=== PATIENT | male | born 1935 | race Caucasian/White ===

== ENCOUNTER 2017-10-08 08:44 | Inpatient (IN) | payer MEDICARE ==
[2017-10-08] VITALS (24 sets, daily range): BP systolic 64–101; BP diastolic 24–70
[~2017-10-08] VITALS: Ht 175.3 cm; Wt 68.6 kg
[~2017-10-08 08:44] MED LIST: AMIODARONE HCL200 MG PO; AMLODIPINE BESYL5 MG PO; CEFDINIR300 MG; CEFDINIR300 MG PO; COLESTIPOL HCL1 GM PO; COMBIVENT RESPIM4 GM IH; COUMADIN PO; COUMADIN2.5 MG PO; COUMADIN3 MG PO; COUMADIN5 MG PO; GABAPENTIN100 MG PO; LIALDA1.2 GM PO; LOVENOX100 MG/ML SC; MAGNESIUM OXID400 MG PO; METOPROLOL SUCC25 MG PO; METOPROLOL SUCC50 MG PO; NASONEX17 GM INH; PANTOPRAZOLE SO40 MG PO; PEPCID20 MG PO; PROAIR HFA INH8.5 GM INH; QUESTRAN PACKET4 GM PO; SODIUM BICARBO650 MG PO; SULFASALAZINE500 MG PO; ULTRAM50 MG PO; WARFARIN SODIU2.5 MG PO; WARFARIN SODIUM3 MG PO; WARFARIN SODIUM5 MG PO; ZOFRAN ODT4 MG PO
--- OUTSIDE RECORDS SUMMARY | 2017-10-08 08:47 | XMS REPORT ---
Author Author [facility] Address Unknown Phone Unavailable Care Team Providers Care Used Car [employer] Name Role Phone DARIN GONZALEZ Unavailable Unavailable [facility] Unavailable Unavailable Problems This patient has no known problems. Allergies, Adverse Reactions, Alerts This patient has no known allergies or adverse reactions. Medications This patient has no known medications. Results Test Description Test Time Test Comments Text Results Atomic Results Result Comments CT CERVICAL SPINE WO [place] [id number] Patient Name: CHAPIN TALBERT II MR #: [id number] : 1935 Age/Sex: 81/M Req #: [id number] Adm Physician: Ordered by: DARIN GONZALEZ MD Report #: [id number] Location: ER Room/Bed: Procedure: [id number] 0031 CT/CT CERVICAL SPINE WO Exam Date: 07/02/17 Exam Time: 2350 REPORT STATUS: Signed Exams: Head and cervical spine CTs without IV contrast History: Trauma, fall Comparison studies: None Technique: Axial images were obtained from the brain and cervical spine. Coronal and sagittal images reconstructed from the axial data. Intravenous contrast: None Findings: Head CT: Soft tissues: Right supraorbital laceration. No retained hyperdense foreign body. Bones: No fractures, blastic or lytic lesions. Extra-axial spaces: No masses. No fluid collections. Brain sulci: Prominent. Ventricles: Mild compensatory dilatation.. No hydrocephalus. Parenchyma: No mass, acute hemorrhage or acute cortical vascular insults. A few scattered hypodensities in the supratentorial white matter are nonspecific but most compatible with chronic small vessel ischemic changes. Sellar/suprasellar region: No abnormalities. Craniocervical junction: The foramen magnum is patent. No Chiari one malformation. Cervical spine CT: Fractures: None. Soft tissues: No gross abnormalities. Atlantoaxial articulation: Intact. Alignment: Mild cervical kyphosis. 4 mm anterolisthesis of C2 on C3 and minimal anterolisthesis of C3 on C4, retrolisthesis of C5 on C6 and anterolisthesis of C7 on T1 are most likely degenerative in etiology. Cervicomedullary junction: No abnormalities. The foramen magnum is patent. Vertebrae: No infection or neoplasm. Degenerative changes: Moderately degenerated C2- C3 disc. Severely degenerated disks from C3 to C7. Mildly degenerated C7-T1 disc. No significant canal stenosis. Multilevel facet arthrosis, moderate bilaterally at C2-C3 on the left at C3-C4. Lytic changes at the right C2-C3 facet are likely sequela of synovitis. Multilevel foraminal stenosis due to uncovertebral facet arthrosis (mild right at C2-C3, moderate bilaterally at C3 -C4, moderate right and mild left at C4-C5, moderate left and mild right at C5 -C6, mild right greater than left at C6-C7). Incidental findings: Atherosclerotic calcifications in the carotid siphons an bilateral cervical carotid bifurcation/carotid bulbs. Left lens replacement related to previous cataract surgery. Nonspecific subpleural nodularity at the right lung apex, possibly scarring. IMPRESSION: Head CT: 1. Right supraorbital soft tissue laceration without retained hyperdense foreign body or underlying fracture. 2. No acute intracranial abnormalities. 3. Mild generalized volume loss. 4. Mild chronic microvascular ischemic changes. Cervical spine CT: 1. No cervical spine fracture or acute subluxations. 2. Advanced multilevel degenerative changes with multilevel listhesis as described. 3. Cannot adequately ligament, spinal cord and or vascular abnormalities on the basis of this examination. Signed by: Dr. John Baker M.D. on 07/03/2017 12:53 AM Dictated By: JOHN BAKER MD Transcribed By: NINA on 07/03/1752 COPY TO: DARIN GONZALEZ MD CT BRAIN WO [place] [id number] [place] [address] Patient Name: CHAPIN TALBERT II MR #: [id number] : 1935 Age/Sex: 81/M Req #: [id number] Adm Physician: Ordered by: DARIN GONZALEZ MD Report #: [id number] Location: ER Room/Bed: Procedure: [id number] 0030 CT/CT BRAIN WO Exam Date: 07/02/17 Exam Time: 2350 REPORT STATUS: Signed Exams: Head and cervical spine CTs without IV contrast History: Trauma, fall Comparison studies: None Technique: Axial images were obtained from the brain and cervical spine. Coronal and sagittal images reconstructed from the axial data. Intravenous contrast: None Findings: Head CT: Soft tissues: Right supraorbital laceration. No retained hyperdense foreign body. Bones: No fractures, blastic or lytic lesions. Extra-axial spaces: No masses. No fluid collections. Brain sulci: Prominent. Ventricles: Mild compensatory dilatation.. No hydrocephalus. Parenchyma: No mass, acute hemorrhage or acute cortical vascular insults. A few scattered hypodensities in the supratentorial white matter are nonspecific but most compatible with chronic small vessel ischemic changes. Sellar/suprasellar region: No abnormalities. Craniocervical junction: The foramen magnum is patent. No Chiari one malformation. Cervical spine CT: Fractures: None. Soft tissues: No gross abnormalities. Atlantoaxial articulation: Intact. Alignment: Mild cervical kyphosis. 4 mm anterolisthesis of C2 on C3 and minimal anterolisthesis of C3 on C4, retrolisthesis of C5 on C6 and anterolisthesis of C7 on T1 are most likely degenerative in etiology. Cervicomedullary junction: No abnormalities. The foramen magnum is patent. Vertebrae: No infection or neoplasm. Degenerative changes: Moderately degenerated C2- C3 disc. Severely degenerated disks from C3 to C7. Mildly degenerated C7-T1 disc. No significant canal stenosis. Multilevel facet arthrosis, moderate bilaterally at C2-C3 on the left at C3-C4. Lytic changes at the right C2-C3 facet are likely sequela of synovitis. Multilevel foraminal stenosis due to uncovertebral facet arthrosis (mild right at C2-C3, moderate bilaterally at C3 -C4, moderate right and mild left at C4-C5, moderate left and mild right at C5 -C6, mild right greater than left at C6-C7). Incidental findings: Atherosclerotic calcifications in the carotid siphons an bilateral cervical carotid bifurcation/carotid bulbs. Left lens replacement related to previous cataract surgery. Nonspecific subpleural nodularity at the right lung apex, possibly scarring. IMPRESSION: Head CT: 1. Right supraorbital soft tissue laceration without retained hyperdense foreign body or underlying fracture. 2. No acute intracranial abnormalities. 3. Mild generalized volume loss. 4. Mild chronic microvascular ischemic changes. Cervical spine CT: 1. No cervical spine fracture or acute subluxations. 2. Advanced multilevel degenerative changes with multilevel listhesis as described. 3. Cannot adequately ligament, spinal cord and or vascular abnormalities on the basis of this examination. Signed by: Dr. John Baker M.D. on 07/03/2017 12:53 AM Dictated By: JOHN BAKER MD Transcribed By: NINA on 07/03/1752 COPY TO: DARIN GONZALEZ MD [facility] [place] [address] Patient Name: CHAPIN TALBERT II MR #: [id number] : 1935 Age/Sex: 81/M Req #: [id number] Adm Physician: Ordered by: DARIN GONZALEZ MD Report #: [id number] Location: ER Room/Bed: Procedure: [id number] DX/CHEST SINGLE (PORTABLE) Exam Date: 07/02/17 Exam Time: 2350 REPORT STATUS: Signed EXAM: CHEST SINGLE (PORTABLE), AP 1 view DATE: 07/02/2017 11:18 PM Time stamp on exam: 2342 hours INDICATION: Post fall, shortness of breath COMPARISON: PA and lateral view of the chest June 28, 2017 FINDINGS: LINES/TUBES: Interval removal of right subclavian line. LUNGS: Stable emphysematous changes with interstitial thickening in the right greater than left lung base. PLEURA: No effusions or pneumothorax. HEART AND MEDIASTINUM: Stable appearance. BONES AND SOFT TISSUES: No acute findings. IMPRESSION: No acute thoracic abnormality. Signed by: Dr. Leesa Grant M.D. on 07/03/2017 1:17 AM Dictated By: LEESA GRANT MD 6 Transcribed By: NINA on 07/03/17116 COPY TO: DARIN GONZALEZ MD PELVIS AP 1-2 VIEWS [place] [address] Patient Name: CHAPIN TALBERT II MR #: [id number] : 1935 Age/Sex: 81/M Req #: [id number] Adm Physician: Ordered by: DARIN GONZALEZ MD Report #: [id number] Location: ER Room/Bed: Procedure: 1204- 0100 DX/PELVIS AP 1-2 VIEWS Exam Date: 07/02/17 Exam Time: 2350 REPORT STATUS: Signed EXAM: PELVIS AP 1-2 VIEWS DATE : 07/02/2017 11:18 PM Time stamp on exam: 2348 hours INDICATION: Fall COMPARISON: None FINDINGS: Femoral necks are not seen in profile. No evidence of an acute pelvic fracture. Chronic deformity of the right iliac wing. IMPRESSION: No evidence of acute pelvic fracture. The femoral necks are incompletely evaluated. Signed by: Dr. Leesa Grant M.D. on 07/03/2017 1:19 AM Dictated By: LEESA GRANT MD 8 Transcribed By: NINA on 118 COPY TO: DARIN GONZALEZ MD CHEST 2 VIEWS [place] [address] Patient Name: CHAPIN TALBERT II MR #: [id number] : 1935 Age/Sex: 81/M Req #: [id number] Adm Physician: [facility] G[facility] MD Ordered by: MERCY GARDNER MD Report #: [id number] Location: MED/SURG3 [facility] Procedure: [id number] DX/CHEST 2 VIEWS Exam Date: 06/28/17 Exam Time: 1019 REPORT STATUS: Signed PROCEDURE: Frontal and lateral views of the chest. COMPARISON: Portable chest 08/14/2016. Portable chest 06/26/2017 INDICATIONS: PNEUMONIA FINDINGS: Lines/tubes: Right subclavian central venous catheter with the midportion of the catheter coiled within the expected region of the right brachiocephalic vein and the tip projecting over the expected region of the superior vena cava. Lungs: Bibasilar airspace opacities, stable since previous examination. No parenchymal mass. Pleura: There is no pleural effusion or pneumothorax. Heart and mediastinum: The heart and the mediastinum are normal. Bones: No acute bony abnormality. Degenerative changes of the thoracic spine. IMPRESSION: Stable bilateral airspace opacities, consistent with history of pneumonia. Dictated by: Tonia Cartagena M.D. on 06/28/2017 at 10:51 Electronically approved by: Tonia Cartagena M.D. on 06/28/2017 at 10:51 Dictated By: TONIA CARTAGENA MD 1051 COPY TO: [facility] G[facility] MD CHEST SINGLE (PORTABLE) [place] [address] Patient Name: CHAPIN TALBERT II MR #: [id number] : 1935 Age/Sex: 81/M Req #: [id number] Adm Physician: [facility] GARDNER MD Ordered by: MERCY GARDNER MD Report #: [id number] Location: ICU Room/Bed: ICU [facility] Procedure: [id number] DX/CHEST SINGLE (PORTABLE) Exam Date: 06/26/17 Exam Time: 1015 REPORT STATUS: Signed PROCEDURE: CHEST SINGLE (PORTABLE) COMPARISON: 06/21/2017. INDICATIONS: PNEUMONIA, COUGH WITH INSPIRATION FINDINGS: Unchanged position of right subclavian central venous catheter, which loops over the clavicular head. The tip projects in the expected region of the right brachiocephalic vein. Lungs remain well-inflated. Image quality is slightly degraded by motion artifact. Grossly stable bibasilar airspace disease, right greater than left. Emphysematous changes are again noted. No new consolidation. Stable cardiomediastinal contour. Nasogastric tube has been removed. No acute osseous abnormality.. CONCLUSION: Stable emphysematous changes with bilateral lower lobe pneumonia, right worse than left. Dictated by: John Chase M.D. on 06/26/2017 at 10:54 Electronically approved by: John Chase M.D. on 06/26/2017 at 10:54 Dictated By: JOHN CHASE MD 1054 Transcribed By: ANETA on 06/26/17 1054 COPY TO: MERCY GARDNER MD ABDOMEN-1VIEW (KUB) [place] [address] Patient Name: CHAPIN TALBERT II MR #: [id number] : 1935 Age/Sex: 81/M Req #: [id number] Adm Physician: MER[facility] GARDNER MD Ordered by: JOHN BEVERLY MD Report #: [id number] Location: ICU Room/Bed: ICU [facility] ___ Procedure: [id number] DX/ABDOMEN-1VIEW (KUB) Exam Date: 06/23/17 Exam Time: 1100 REPORT STATUS: Signed Exam: Abdominal film Clinical History: Aspiration, bowel obstruction Comparison: June 22, 2017 DISCUSSION: Enteric tube unchanged. Multiple dilated loops of small bowel and colon. Overall the distention appears unchanged with different loops of air-filled bowel. IMPRESSION: Stable dilated loops of small bowel. Signed by: Dr. Payam Barrios M.D. on 06/23/2017 11:43 AM Dictated By: PAYAM BARRIOS MD 42 Transcribed By: NINA on 06/23/171142 COPY TO: JOHN BEVERLY MD ABDOMEN-1VIEW (KUB) [place] [address] Patient Name: CHAPIN TALBERT II MR #: [id number] : 1935 Age/Sex: 81/M Req #: [id number] Adm Physician: MERCY GARDNER MD Ordered by: MERCY GARDNER MD Report #: [id number] Location: ICU Room/Bed: ICU [facility] Procedure: [id number] DX/ABDOMEN-1VIEW (KUB) Exam Date: Exam Time: REPORT STATUS: Signed EXAM: ABDOMEN- 1VIEW (KUB), supine DATE: 06/22/2017 5:00 AM Time stamp on exam: 0406 hours INDICATION: Ileus versus intestinal obstruction COMPARISON: KUB May FINDINGS: LINES/TUBES: Nasal/orogastric tube terminates in expected location of the body of the stomach BOWEL PATTERN: Dilated loops of small bowel, decreased from prior exam. Air is seen throughout the colon to the rectum. SOFT TISSUES: Surgical clips project over the bilateral pelvis. LUNG BASES: Not included BONES: No acute findings. IMPRESSION: Dilated loops of small bowel, decreased decreased from prior exam. Appearance of bowel suggests partial small bowel obstruction or ileus. Signed by: Dr. Leesa Grant M.D. on 06/22/2017 4:30 AM Dictated By: LEESA GRANT MD 9 Transcribed By: NINA on 06/22/17429 COPY TO: MERCY GARDNER MD CHEST SINGLE (PORTABLE) [facility] [address] [place] [address] Patient Name: CHAPIN TALBERT II MR #: [id number] : 1935 Age/Sex: 81/M Req #: [id number] Adm Physician: MERCY GARDNER MD Ordered by: JOHN ERIC MD Report #: [id number] Location: ICU Room/Bed: ICU [facility] ___ Procedure: [id number] DX/CHEST SINGLE (PORTABLE) Exam Date: 06/21/17 Exam Time: 526 REPORT STATUS: Signed EXAM: CHEST SINGLE (PORTABLE), AP 1 view DATE: 06/21/2017 8:05 AM Time stamp on exam: 0527 hours INDICATION: Pneumonia COMPARISON: AP view of the chest of the 2016 FINDINGS: LINES/TUBES: Stable appearance of coiled right subclavian central line. Nasal/orogastric tube courses below the diaphragm out of field of view. LUNGS: Stable emphysematous changes with bibasilar opacities suggesting superimposed infection. PLEURA: No effusions or pneumothorax. HEART AND MEDIASTINUM: Stable appearance. BONES AND SOFT TISSUES: No acute findings. IMPRESSION: No interval change. Signed by: Dr. Leesa Grant M.D. on 06/21/2017 6:28 AM Dictated By: LEESA GRANT MD 7 Transcribed By: NINA on 06/21/17627 COPY TO: JOHN ERIC MD ABDOMEN-1VIEW (KUB) [place] [address] Patient Name: CHAPIN TALBERT II MR #: [id number] : 1935 Age/Sex: 81/M Req #: [id number] Adm Physician: MERCY GARDNER MD Ordered by: MERCY GARDNER MD Report #: [id number] Location: ICU Room/Bed: ICU [facility] Procedure: [id number] DX/ABDOMEN-1VIEW (KUB) Exam Date: Exam Time: REPORT STATUS: Signed EXAM: ABDOMEN- 1VIEW (KUB), supine DATE: 06/21/2017 5:00 AM Time stamp on exam: 0528 hours INDICATION: Sepsis COMPARISON: KUB June 20, 2017 FINDINGS: LINES/ TUBES: Inferior vena cava filter. Nasal/orogastric tube projects over the expected location of the proximal stomach. BOWEL PATTERN: Dilated loops of air-filled small bowel in the middle of the abdomen up to 5 to 7 cm. SOFT TISSUES: Surgical clips project over the pelvis. LUNG BASES: Partially visualized, bibasilar atelectasis BONES: No acute findings. IMPRESSION: Findings suggest high-grade small bowel obstruction. Signed by: Dr. Leesa Grant M.D. on 06/21/2017 6:31 AM Dictated By: LEESA GRANT MD 0 COPY TO: MERCY GARDNER MD ABDOMEN-1VIEW (KUB) [place] [address] Patient Name: CHAPIN TALBERT II MR #: [id number] : 1935 Age/Sex: 81/M Req #: [id number] Adm Physician: MERCY GARDNER MD Ordered by: MERCY GARDNER MD Report #: [id number] Location: ICU Room/Bed: ICU 196 Procedure: [id number] DX/ABDOMEN-1VIEW (KUB) Exam Date: Exam Time: REPORT STATUS: Signed EXAM: ABDOMEN- 1VIEW (KUB), supine DATE: 06/20/2017 5:00 AM Time stamp on exam: 0531 hours INDICATION: Ileus versus intestinal obstruction COMPARISON: KUB May FINDINGS: LINES/TUBES: Inferior vena cava filter. BOWEL PATTERN: Nonspecific bowel gas pattern. General paucity of bowel gas. SOFT TISSUES: No abnormal calcifications. No mass effect. LUNG BASES: Not included BONES: No acute findings. IMPRESSION: Nonspecific bowel gas pattern. General paucity of bowel gas. Signed by: Dr. Leesa Grant M.D. on 06/20/2017 6:27 AM Dictated By: LEESA GRANT MD 6 Transcribed By: NINA on 06/20/17626 COPY TO: MERCY GARDNER MD CHEST SINGLE (PORTABLE) [place] [address] Patient Name: CHAPIN TABLERT II MR #: [id number] : 1935 Age/Sex: 81/M Req #: [id number] Adm Physician: MERCY GARDNER MD Ordered by: JOHN ERIC MD Report #: [id number] Location: ICU Room/Bed: ICU 196 ___ Procedure: DX/CHEST SINGLE (PORTABLE) Exam Date: Exam Time: REPORT STATUS: Signed EXAM: CHEST SINGLE (PORTABLE), AP 1 view DATE: 06/19/2017 9:00 AM Time stamp on exam: 0532 hours INDICATION: Shortness of breath, pneumonia COMPARISON: AP view of the chest June 18, 2017 FINDINGS: LINES/TUBES: Stable appearance of coiled right subclavian central line. Nasal/orogastric tube courses below the diaphragm and out of field of view. LUNGS: Stable emphysematous changes with bibasilar opacities suggesting superimposed infection. PLEURA: No effusions or pneumothorax. HEART AND MEDIASTINUM: Normal size and contour. BONES AND SOFT TISSUES: No acute findings. IMPRESSION: No interval change. Signed by: Dr. Leesa Grant M.D. on 06/19/2017 6:50 AM Dictated By: LEESA GRANT MD Transcribed By: NINA on 06/19/1750 COPY TO: JOHN ERIC MD ABDOMEN-1VIEW ([place] [address] Patient Name: CHAPIN TALBERT II MR #: [id number] : 1935 Age/Sex: 81/M Req #: [id number] Adm Physician: MERCY GARDNER MD Ordered by: MERCY GARDNER MD Report #: [id number] Location: ICU Room/Bed: ICU 196 Procedure: DX/ABDOMEN-1VIEW (KUB) Exam Date: Exam Time: REPORT STATUS: Signed EXAM: ABDOMEN- 1VIEW (KUB), supine DATE: 06/19/2017 5:00 AM Time stamp on exam: 0531 hours INDICATION: Abdominal pain, distention COMPARISON: KUB August 18, 2016 FINDINGS: LINES/TUBES: Inferior vena cava filter stable position BOWEL PATTERN: Nonspecific bowel gas pattern with a general paucity of bowel gas. SOFT TISSUES: No abnormal calcifications. No mass effect. LUNG BASES: Bibasilar opacities BONES: No acute findings. IMPRESSION: Nonspecific bowel gas pattern with a general paucity of bowel gas. Signed by: Dr. Leesa Grant M.D. on 06/19/2017 6:51 AM Dictated By: LEESA GRANT MD 0 COPY TO: MERCY GARDNER MD CHEST SINGLE (PORTABLE) [place] [address] Patient Name: CHAPIN TALBERT II MR #: [id number] : 1935 Age/Sex: 81/M Req #: [id number] Adm Physician: MERCY GARDNER MD Ordered by: BEAU AQUINO MD Report #: [id number] Location: ICU Room/Bed: [place] [address] Procedure: [id number] DX/CHEST SINGLE (PORTABLE) Exam Date: 06/18/17 Exam Time: 0500 REPORT STATUS: Signed CHEST SINGLE (PORTABLE), 06/18/2017 5:00 AM Technique: CHEST SINGLE (PORTABLE) Comparison: 06/17/2017 Clinical history: Pneumonia Findings: See Impression Impression: 1. Lines/Tubes: Right central venous catheter remains coiled over the expected right brachiocephalic vein. Enteric feeding tube tip overlies the lower midline hemithorax, possibly within a hiatal hernia. 2. Persistent right greater than left lower lung opacity compatible with infection in the setting of emphysema. Signed by : Dr James Sal MD on 06/18/2017 6:33 AM Dictated By: JAMES SAL MD 2 Transcribed By: NINA on 06/18/17632 COPY TO: BEAU AQUINO MD CHEST SINGLE (PORTABLE) [place] [address] Patient Name: CHAPIN TALBERT II MR #: [id number] : 1935 Age/Sex: 81/M Req #: [id number] Adm Physician: Ordered by: BEAU AQUINO MD Report #: [id number] Location: ER Room/Bed: Procedure: [id number] DX/CHEST SINGLE (PORTABLE) Exam Date: 06/17/17 Exam Time: 1435 REPORT STATUS: Signed EXAMINATION: Chest, CHEST SINGLE (PORTABLE) INDICATION: Shortness of breath. COMPARISON: Portable chest 08/14/2016. Portable chest 06/17/2017. FINDINGS: LINES: Enteric feeding catheter is present with the tip extending below the inferior margin of the examination, likely within the gastric body. Right subclavian central venous catheter is present with the tip coiled within the right brachiocephalic vein. Heart: Normal cardiac silhouette. Vascular: The pulmonary vasculature is within normal limits. Atherosclerotic calcifications of the aortic arch. Mediastinum: No mediastinal, hilar, or axillary mass or lymphadenopathy. Lungs: No parenchymal mass. Large opacity in the right lung base. Small airspace opacity in the left lung base. Pleura: No pleural effusion. No pneumothorax. Bones: No acute osseous abnormality. Degenerative changes of the thoracic spine. Soft tissues: Normal. Impression: Bibasilar airspace opacities likely represent pneumonia. Right subclavian central venous catheter positioned as above. Signed by: Dr. Tonia Cartagena M.D. on 06/17/2017 2:54 PM Dictated By: TONIA CARTAGENA MD 53 Transcribed By: NINA on 06/17/171453 COPY TO: BEAU AQUINO MD CHEST SINGLE (PORTABLE) [place] [address] Patient Name: CHAPIN TALBERT II MR #: [id number] : 1935 Age/Sex: 81/M Req #: [id number] Adm Physician: Ordered by: BEAU AQUINO MD Report #: [id number] Location: ER Room/Bed: Procedure: [id number] DX/CHEST SINGLE (PORTABLE) Exam Date: 06/17/17 Exam Time: 1220 REPORT STATUS: Signed EXAMINATION: Chest, CHEST SINGLE (PORTABLE) INDICATION: Shortness of breath. COMPARISON: Portable chest 08/14/2016 FINDINGS: LINES: None. Heart: Normal cardiac silhouette. Vascular: The pulmonary vasculature is within normal limits. Atherosclerotic calcifications of the aortic arch. Mediastinum: No mediastinal, hilar, or axillary mass or lymphadenopathy. Lungs: No parenchymal mass. Large opacity in the right lung base. Small airspace opacity in the left lung base. Pleura: No pleural effusion. No pneumothorax. Bones: No acute osseous abnormality. Degenerative changes of the thoracic spine. Soft tissues: Normal. Impression: Bibasilar airspace opacities likely represent pneumonia. Signed by: Dr. Tonia Cartagena M.D. on 06/17/2017 12:36 PM Dictated By: TONIA CARTAGENA MD 1236 Transcribed By: NINA on 06/17/17 1236 COPY TO: BEAU AQUINO MD CT ABDOMEN/PELVIS WO [place] [address] Patient Name: CHAPIN TALBERT II MR #: [id number] : 1935 Age/Sex: 81/M Req #: [id number] Adm Physician: Ordered by: BEAU AQUINO MD Report # : [id number] Location: ER Room/Bed: Procedure: [id number] CT/CT ABDOMEN/PELVIS WO Exam Date: 06/17/17 Exam Time: 1229 REPORT STATUS: Signed EXAM: CT Abdomen and Pelvis WITHOUT contrast INDICATION: Abdominal pain COMPARISON: None. TECHNIQUE: Abdomen and pelvis were scanned utilizing a multidetector helical scanner from the lung base to the pubic symphysis. Coronal and sagittal reformations were obtained. The lack of intravenous contrast limits the evaluation of the solid organs, vasculature, and possible lymphadenopathy. Protocol: General survey without contrast IV CONTRAST: No intravenous contrast was administered as per physician request. ORAL CONTRAST: None. COMPLICATIONS: None. RADIATION DOSE: Total Exam DLP: 421.1 mGy*cm. CTDIvol has been reviewed. It is below the limits set by the Radiation Protocol Committee (RPC). FINDINGS: LINES: None. Lower thorax: Bilateral lung base airspace opacities. No pneumothorax. No pleural effusion. Liver: No focal mass. No hepatomegaly. Normal parenchyma. Stable simple cysts. Gallbladder: No gallstones. No gallbladder distention. Biliary tree: No intrahepatic duct dilation. No extrahepatic duct dilation. Spleen: No splenomegaly. No focal mass. Pancreas: No focal mass. Normal pancreatic duct. No peripancreatic inflammatory changes. Kidneys: No obstructing calculi. No hydronephrosis. No cysts. No perinephric soft tissue inflammatory changes. Adrenal glands: No adrenal nodules.. Bladder: Cystectomy. Pelvic organs: Limited evaluation. GI: Mucosal irregularity is noted in the region of the gastroesophageal junction, series 401 image 49. Moderate amount of fluid is present in the distal esophagus. Multiple fluid-filled distended loops of small bowel with the transition zone in the left mid abdomen, series 3 image 99. Ostomy is present in the right upper quadrant. Air and feces are present in the colon and rectum. Peritoneum/retroperitoneum: No pneumoperitoneum. No ascites. No drainable fluid collection. Lymph nodes : No lymphadenopathy. . Vessels: No focal abnormality. Aortoiliac and great vessel atherosclerotic calcifications. Limited evaluation. Bones: No focal abnormality. Degenerative changes of the lumbar spine. Soft tissues: No focal abnormality. IMPRESSION: 1. Small bowel obstruction with a transition zone in the left mid abdomen. 2. Mucosal irregularity in the gastroesophageal junction is indeterminate. An endoscopy may provide additional information for further characterization. 3. Fluid in the distal esophagus may represent gastroesophageal reflux. 4. Bilateral lower lobe airspace opacities may represent aspiration or pneumonia. Signed by: Dr. Tonia Cartagena M.D. on 06/17/2017 1:20 PM Dictated By: TONIA CARTAGENA MD [id number] Transcribed By: NINA on 06/17/17 1320 COPY TO: BEAU AQUINO MD
[2017-10-08] MEDS ORDERED: PANTOPRAZOLE 40 MG 10ML VIAL IV STA (08:49)
[2017-10-08] MEDS ORDERED: SODIUM CHLORIDE 0.9% 1000ML 1,000 ML IV STA (08:49)
[2017-10-08] MEDS ORDERED: ONDANSETRON HCL INJ 2 MG/ML VIAL IV STA (08:52)
[2017-10-08] MEDS ORDERED: SODIUM CHLORIDE 0.9% 250ML 250 ML IV ONE ×2 (09:00→19:30)
[2017-10-08] MEDS ORDERED: ONDANSETRON HCL 4 MG ORAL DISINTEGRATING TAB ONE (09:06)
[2017-10-08] MEDS ORDERED: LORAZEPAM INJ 2 MG/ML VIAL ONE (09:10)
[2017-10-08] MEDS ORDERED: ONDANSETRON HCL 4 MG ORAL DISINTEGRATING TAB PO ONE (09:15)
[2017-10-08 09:42] LABS: BASOPHILS % 0.2 % (0.0-1.0); HEMATOCRIT 28.5 % (38.2-49.6); LYMPHOCYTES % 10.1 % (18.0-39.1); MEAN CORPUSCULAR HGB CONC 31.6 g/dL (31-35); MEAN CORPUSCULAR VOLUME 120.3 fL (81-99); MONOCYTES # (AUTO) 0.2 (0.2-0.8); MONOCYTES % 2.3 % (4.4-11.3); NEUTROPHILS # (AUTO) 8.3 (2.1-6.9); NEUTROPHILS % 86.3 % (38.7-80.0); PLATELET COUNT 361 x10e3/uL (140-360); RED BLOOD COUNT 2.37 x10e6/uL (4.3-5.7); RED CELL DISTRIBUTION WIDTH 16.1 % (11.7-14.4)
[2017-10-08] MEDS ORDERED: LORAZEPAM INJ 2 MG/ML VIAL IM ONE (09:45)
[2017-10-08 10:01] LABS: PARTIAL THROMBOPLASTIN TIME 49.7 seconds (23.8-35.5)
[2017-10-08 10:07] LABS: ALANINE AMINOTRANSFERASE 24 IU/L (0-55); ALBUMIN 2.5 g/dL (3.5-5.0); ALBUMIN/GLOBULIN RATIO 0.8 (0.8-2.0); ALKALINE PHOSPHATASE 60 IU/L (40-150); ANION GAP 19.3 mmol/L (8-16); BLOOD UREA NITROGEN 44 mg/dL (7-26); BUN/CREATININE RATIO 16 (6-25); CARBON DIOXIDE 18 mmol/L (22-29); CHLORIDE 106 mmol/L (98-107); CREATINE KINASE 351 IU/L (30-200); CREATININE, SERUM 2.67 mg/dL (0.72-1.25); EST GLOMERULAR FILTRATION RATE 23 ML/MIN (60-); GLUCOSE 111 mg/dL (74-118); POTASSIUM 5.3 mmol/L (3.5-5.1); SODIUM 138 mmol/L (136-145)
[2017-10-08] MEDS ORDERED: PIPER-TAZ 3.375 GM 50 ML IV STA (10:09)
[2017-10-08] MEDS ORDERED: SODIUM CHLORIDE 0.9% 1000ML 1,000 ML ONE (10:11)
[2017-10-08 10:12] LABS: INR 5.72
[2017-10-08 10:13] LABS: PROTHROMBIN TIME 48.4 seconds (11.9-14.5)
[2017-10-08] MEDS ORDERED: SODIUM CHLORIDE 0.9% 1000ML 1,000 ML IV ONE ×2 (10:15→18:15)
--- NOTE | 2017-10-08 10:22 | Diagnostic Imaging Report ---
PROCEDURE: A single AP view of the chest. COMPARISON: Patients [facility], DX, CHEST SINGLE (PORTABLE), 07/02/2017, 23:42. INDICATIONS: CENTRAL LINE PLACEMENT FINDINGS: Lines/tubes: Right subclavian catheter has been placed with the tip overlying the SVC.. Lungs: Unchanged opacities in the right middle and lower lobe and left lower lobe. Pleura: There is no pleural effusion or pneumothorax. Heart and mediastinum: The heart and the mediastinum are unremarkable. Bones: No acute bony abnormality. IMPRESSION: 1. Unchanged opacities in both lower lung anderson. 2. Status post right subclavian central line placement. David Darden D.O. Dictated by: David Darden D.O. on 10/08/2017 at 10:22 Electronically approved by: David Darden D.O. on 10/08/2017 at 10:22
--- NOTE | 2017-10-08 10:35 | Diagnostic Imaging Report ---
PROCEDURE:ABDOMEN COMP INCL UPR OR DECUB TECHNIQUE:AP portable and decubitus view of the abdomen INDICATION:Nausea and vomiting COMPARISON:None. FINDINGS:IVC filter is noted at the L3 vertebral body level. Severe lumbar scoliosis is present. There is no free air identified. Prominent loop of large bowel in the left mid abdomen is present. Scattered air-fluid levels are noted. CONCLUSION: 1. No evidence of free air. 2. Nonspecific abdominal series. David Darden D.O. Dictated by: David Darden D.O. on 10/08/2017 at 10:34 Electronically approved by: David Darden D.O. on 10/08/2017 at 10:34
[2017-10-08 10:36] LABS: ABG HCO3 19 mmol/L (23-28); ABG PCO2 34 mmHg (41-51); ABG PH 7.35 (7.31-7.41); ABG PO2 76 mmHg (80-105)
[2017-10-08 11:47] LABS: BAND NEUTROPHILS % (MANUAL) 13 %; LYMPHOCYTES % (MANUAL) 13 % (19-48); METAMYELOCYTES % (MANUAL) 1 % (0-0); MONOCYTES % (MANUAL) 3 % (3.4-9.0); NEUTROPHILS % (MANUAL) 66 % (40-74); NUCLEATED RED BLOOD CELLS 1
[2017-10-08 11:48] LABS: ANISOCYTOSIS SLIGHT; HYPOCHROMASIA SLIGHT; PLATELET ESTIMATE ADEQUATE; PLATELET MORPHOLOGY COMMENT NORMAL; POIKILOCYTOSIS SLIGHT; RBC MORPHOLOGY COMMENT NORMAL
[2017-10-08] MEDS: NOREPINEPHRINE BITARTRATE/ NS 250 ML IV PRN ×2 (12:01→23:32)
[2017-10-08] MEDS ORDERED: BENZOCAINE/TETRACAINE/BUTAMBEN AERO SPRAY 56 GM CAN TOP ONE (12:15)
--- NOTE | 2017-10-08 12:16 | Diagnostic Imaging Report ---
PROCEDURE: CT ABDOMEN AND PELVIS WITHOUT CONTRAST COMPARISON:CT abdomen/pelvis 06/07/17 and 08/14/16. INDICATIONS:SMALL BOWEL OBSTRUCTION TECHNIQUE: Axial CT images through the abdomen and pelvis were obtained without oral or intravenous contrast. Coronal and sagittal reformations were created. DLP: 620.68 mGy*cm FINDINGS: Lung bases: Bibasilar airspace opacities have increased in severity superimposed on centrilobular emphysema. The distal esophagus is dilated with fluid. There is a small hiatal hernia. Pericardial effusion measures 6 mm. The ascending aorta is ectatic. Liver: Normal attenuation. Low attenuating lesions throughout the parenchyma are stable and suggestive of cysts. These measure up to 3 cm. Spleen: Normal size and attenuation without mass. Biliary: The gallbladder is dilated and contains dependently layering sludge. No mural thickening or pericholecystic inflammation. No biliary ductal dilatation. Pancreas: Mildly atrophic without mass or ductal dilatation. Adrenal Glands: Mildly thickened. No mass. Right kidney: No hydronephrosis. No intrarenal calculus. Partially calcified cyst in the lower pole measures 17 mm and is stable. Left kidney: No hydronephrosis or intrarenal calculus. Cyst in the anterior interpolar cortex measures 16 mm and is stable. Vasculature: Aorta is ectatic with diffuse arthroscopic calcifications. Filter in the IVC is stable in position with the tip below the renal veins. GI: The stomach is dilated with fluid. Small bowel loops are dilated to 5 cm. There is no clear transition point. Chain sutures in the small bowel are stable multiple calcifications are present in small bowel loops in left itz-abdomen and in the pelvis measuring up to 10 mm. These could be due to medication. A similar appearing calculus is identified on the previous exam. The large bowel is collapsed. Ileostomy in the right itz-abdomen is stable in appearance with a fat-containing parastomal hernia. No evidence of pneumatosis. No free air. Bladder: Absent. Peritoneum/Retroperitoneum: No free fluid or fluid collection. No air in the portal veins. Reproductive organs: Prostate gland and seminal vesicles are absent. MSK: A scoliosis the lumbar spine is stable with superimposed degenerative changes. No compression deformities. No focal osseous lesions. CONCLUSION: 1. High-grade small bowel obstruction. Multiple calcifications within small bowel loops may be related to medication. 2. Increasing bibasilar airspace opacities which could be secondary to vomiting and aspiration. 3. Small pericardial effusion. 4. Stable hepatic and renal cysts. Dictated by: Vito Huff M.D. on 10/08/2017 at 12:16 Electronically approved by: Vito Huff M.D. on 10/08/2017 at 12:16
[2017-10-08] MEDS ORDERED: BENZOCAINE/TETRACAINE/BUTAMBEN AERO SPRAY 56 GM CAN ONE (12:19)
[2017-10-08] MEDS ORDERED: LIDOCAINE VISC 2% SOLN 15 ML UDC ONE (12:19)
[2017-10-08] MEDS ORDERED: LIDOCAINE VISC 2% SOLN 15 ML UDC PO ONE (12:25)
[2017-10-08] MEDS ORDERED: DEXTROSE 5% 1,000 ML IV ONE (13:00)
[2017-10-08] MEDS ORDERED: SODIUM CHLORIDE 0.9% 250ML 250 ML ONE ×2 (13:13→19:39)
[2017-10-08] MEDS ORDERED: HYDROCORTISONE SOD SUCCINATE 100 MG VIAL IV ONE (13:15)
[2017-10-08] MEDS: NOREPINEPHRINE BITARTRATE/ NS 250 ML IV SCH (13:45)
--- NOTE | 2017-10-08 13:58 | Consultation ---
DATE OF CONSULTATION: October 08, 2017 RENAL CONSULTATION HISTORY OF PRESENT ILLNESS: Patient seen in the emergency room. Most of the history from chart, ER doctor and patient's [id number] who is by bedside. An 82-year-old gentleman well known to our nephrology service. Apparently his son went to check on him or called him instead, in fact, and then found that he was sick. They called an ambulance. Patient was brought here. He is found to have intestinal obstruction again with possibility of pneumonia. Quite confused, very stuporous, barely arousable but is able to open eyes when I mention my name and he admits that he is having nausea and vomiting for the last 2 days. He also admits to abdominal pain. Currently no apparent respiratory distress. Was significantly hypotensive with elevated lactate levels. Most likely septic with septic shock, on antibiotics. Was given 2 liter saline bolus. Currently on Levophed. Has a right-sided subclavian central line. White count is 9.66, hemoglobin 9. Sodium 138. Potassium 5.3. Bicarbonate 18. Creatinine 2.6. Blood sugar of 111. He has got a urostomy on the right side. Underlying history of atrial fibrillation, COPD, emphysema. He has been admitted several times with intestinal obstruction, sepsis and COPD exacerbation. He has got a history of lung cancer. ALLERGIES: NO APPARENT DRUG ALLERGIES. CURRENT MEDICATIONS: Patient has been started on D5 with 3 amp sodium bicarbonate IV at 100 mL an hour. He is on piptazo. Hydrocortisone 100 mg IV, one time dose. Ondansetron p.r.n. Protonix p.r.n. Lorazepam p.r.n. He is currently on Levophed. SOCIAL HISTORY: Lives by himself. Does not smoke or drink. Prior smoker. PHYSICAL EXAMINATION: HEENT: Patient currently on oxygen mask. Pupils reactive. Oral mucosa, limited exam but dry. Neck veins flat. LUNGS: Bilateral end-expiratory rhonchi, no rales. HEART: S1 and S2 audible. ABDOMEN: Otherwise soft, nontender. No deep palpation done, but abdomen is distended. He has got an NG-tube present as well. LOWER EXTREMITY EXAMINATION: No edema. IMPRESSION: Acute kidney injury on chronic kidney disease stage 3 with hyperkalemia, metabolic acidosis, sepsis, septic shock, intestinal obstruction, underlying chronic obstructive pulmonary disease exacerbation with evidence of bronchospasm, possible aspiration. General Surgery to be consulted. I will consult Dr. Henley, infectious disease. Will continue with IV bicarbonate. Strict intake/output. Repeat potassium. Discussed with family. Patient has had a DNR status. Son is his power of ip attorney for health. He is going to get the papers. I discussed with Dr. Andrea. That will be added to the chart. Please see orders. Job#: [id number] EV
[2017-10-08] MEDS: PIPERACILLIN/TAZO 2.25 GM 50 ML IV SCH ×2 (14:04→22:41)
[2017-10-08] MEDS: SODIUM BICARBONATE 8.4% 150 ML in DEXTROSE 5% 1,000 ML IV SCH (14:18)
[2017-10-08] MEDS: SODIUM CHLORIDE 0.9% 1000ML 1,000 ML IV SCH ×2 (14:18→21:28)
[2017-10-08] MEDS ORDERED: VECURONIUM BROMIDE FOR INJ 20 MG VIAL IV STA (14:56)
[2017-10-08] MEDS ORDERED: ETOMIDATE 2 MG/ML 10 ML INJ IV STA (14:56)
[2017-10-08] MEDS: ALBUTEROL/IPRATROPIUM 3 ML NEB NEB SCH ×3 (15:00→23:30)
[2017-10-08] MEDS ORDERED: ALBUTEROL SULF 0.083% NEB SOLN 3 ML NEB NEB SCH (15:00)
[2017-10-08] MEDS: MIDAZOLAM HCL 25 MG in SODIUM CHLORIDE 0.9% 50ML 45 ML IV PRN ×2 (15:22→21:30)
--- NOTE | 2017-10-08 15:51 | Diagnostic Imaging Report ---
PROCEDURE: CHEST SINGLE (PORTABLE) 1523 hrs. COMPARISON: Chest x-ray 0956 hours INDICATIONS: INTUBATION FINDINGS: Lines/tubes: Endotracheal tube terminates 6 cm above the tonia. Enteric tube terminates in the distal esophagus. The side hole is within the esophagus. Right subclavian central venous catheter terminates in the SVC. No pneumothorax. LUNGS: The bibasilar airspace opacities are present, right lung more severe than the left. No change compared to previous exam. PLEURA: No large effusions or pneumothorax. The costophrenic angles are blunted. HEART \T\ MEDIASTINUM: The heart is normal in size. BONES \T\ SOFT TISSUES: No focal osseous lesions. CONCLUSION: 1. Enteric tube should be advanced approximately 20 cm to ensure side hole placement within the stomach. Other support devices as described above. 2. Multifocal air space opacities in each lung are suggestive of pneumonia. Small pleural effusions are suspected. Dictated by: Vito Huff M.D. on 10/08/2017 at 15:51 Electronically approved by: Vito Huff M.D. on 10/08/2017 at 15:51
[2017-10-08] MEDS ORDERED: METRONIDAZOLE 500MG/NS 100ML 100 ML IV SCH (18:00)
[2017-10-08] MEDS ORDERED: HYDROCORTISONE SOD SUCCINATE 250 MG VIAL IV SCH (18:00)
[2017-10-08] MEDS ORDERED: VECURONIUM BROMIDE FOR INJ 20 MG VIAL ONE (18:37)
[2017-10-08] MEDS ORDERED: ETOMIDATE 2 MG/ML 10 ML INJ IV ONE (18:37)
[2017-10-08] MEDS ORDERED: HYDROCORTISONE SOD SUCCINATE 100 MG VIAL ONE (18:42)
[2017-10-08] MEDS ORDERED: IPRATROPIUM BROMIDE 0.02% 2.5 ML NEB NEB SCH (19:00)
[2017-10-08] MEDS ORDERED: SODIUM CHLORIDE 0.9% 500ML 500 ML IV STA (19:16)
[2017-10-08] MEDS ORDERED: SODIUM CHLORIDE 0.9% 500ML 500 ML ONE (19:23)
[2017-10-08] MEDS ORDERED: DEXAMETHASONE SOD PHOS 10 MG/1 ML VIAL IV ONE (19:30)
[2017-10-08] MEDS ORDERED: FAMOTIDINE 20 MG/2 ML VIAL IV ONE (19:30)
[2017-10-08] MEDS ORDERED: PHYTONADIONE 10 MG/ML AMP SQ ONE (19:30)
[2017-10-08] MEDS: PHENYLEPHRINE 10MG/ML VIAL 40 MG in DEXTROSE 5% 250ML 246 ML IV PRN (20:05)
--- NOTE | 2017-10-08 20:11 | Consultation ---
DATE OF CONSULTATION: October 08, 2017 PULMONARY CONSULTATION Patient of Dr. Luigi Torres and at [facility]. An unfortunate 82-year-old gentleman with a history of carcinoma of the bladder, history of carcinoma of the lung. Lung was treated with stereotactic radiation. He has had bladder surgery and resection and urostomy. He has had radical bladder resection. History of intermittent atrial fibrillation, COPD, anticoagulated. He has a history of chronic kidney disease transiently diagnosed. MEDICATIONS: Include amiodarone, Protonix and Combivent. He has severe COPD. He felt not to be a surgical candidate, but did undergo stereotactic resection. He has requested DNR status. The family thinks things are hopeless, but the family wished to try mechanical ventilator support and antibiotics and pressors. They declined further intervention with CPR defibrillation. PHYSICAL EXAMINATION GENERAL: He is a well-developed, sallow white male looking older than his stated age. VITALS: Temperature 99, blood pressure 88/54 on vasopressors and norepinephrine, respirations 28. LUNGS: Bilateral rales and rhonchi. HEART: Regular rhythm. ABDOMEN: Nontender. Neobladder is noted. EXTREMITIES: Nonedematous. IMPRESSION 1. Sepsis and pneumonia. 2. Small-bowel obstruction. PLAN: Pressors. Decrease hemoglobin to 10 in view of his persistent shock and hypoxia despite 100% oxygen. Long-term prognosis is grim. This was discussed at length with the patient's family. Thank you for this kind referral. Job#: [id number] DIOMEDES
[2017-10-08] MEDS: HYDROCORTISONE SOD SUCCINATE 100 MG VIAL IV SCH (21:00)
[2017-10-08 21:27] LABS: ABG PH 7.31 (7.31-7.41)
--- NOTE | 2017-10-08 21:28 | Consultation ---
DATE OF CONSULTATION: October 08, 2017 REFERRING PHYSICIAN: Dr. Torres. HISTORY OF PRESENT ILLNESS: The patient is an 82-year-old male who was admitted to the hospital with respiratory failure and apparently vomiting. He was found to have aspiration pneumonia. He has had previous cystectomy with ileal conduit. He has had several other admissions for intestinal obstruction. He is currently in ICU intubated and unable to give any history. CT of the abdomen reveals findings of high-grade small bowel obstruction, but no definite findings of ischemic bowel. No free air. PAST MEDICAL HISTORY: Significant for atrial fibrillation for which he is anticoagulated on warfarin. MEDICATIONS: At home include amiodarone, Combivent, Zofran, Protonix, sulfasalazine and tramadol. ALLERGIES: NO KNOWN DRUG ALLERGIES. FAMILY HISTORY: Noncontributory. SOCIAL HISTORY: Not available. REVIEW OF SYSTEMS: Not available. PHYSICAL EXAMINATION: VITALS: Current blood pressure is 93/66, heart rate was 74. He is on multiple pressor agents including phenylephrine, Levophed and Vasopressin. GENERAL: The patient is in ICU. He is intubated. HEENT: Reveals no reveals scleral icterus. He appears pale. NECK: Has no masses. LUNGS: Equal breath sounds with some coarse breath sounds, upper airway noise. CARDIAC: Regular rhythm. ABDOMEN: Has slight distention. It is soft. There is no mass. There are no definite signs of peritonitis. EXTREMITIES: Slightly cool and pale with no edema. NEUROLOGIC: Cannot be assessed. LABORATORY DATA: White blood cell count 9.6 with severe left shift with differential of 13 bands as well as 1 metamyelocyte and 1 nucleated red blood cell. Hemoglobin 9, hematocrit 28.5. Chemistries show bicarbonate level of 18. Lactic acid elevated at 39.8. Repeat 27.3 with normal being 19.8 or less. BUN 44, creatinine 2.67. CT abdomen as stated above with findings suggestive of small bowel obstruction. ASSESSMENT: This is a 82-year-old male who appears to have pneumonia with sepsis. Also small bowel obstruction with no findings of peritonitis or acute abdomen on exam. He is a very poor surgical candidate in any event. At this point, I recommend continue supportive therapy as is currently being done. Recommend replacement and NG or OG tube which came out earlier. Continue nonoperative therapy. Plan to repeat the abdominal x-ray tomorrow. Thank you for asking me to see Mr. Patton. Job#: [id number] ELOISA
[2017-10-08] MEDS: VANCOMYCIN 1GM/NS 250 ML 250 ML IV SCH (23:18)
[2017-10-09] VITALS (98 sets, daily range): BP systolic 89–128; BP diastolic 60–86
[2017-10-09] MEDS ORDERED: ALBUTEROL/IPRATROPIUM 3 ML NEB NEB SCH (01:00)
[2017-10-09] MEDS: HYDROCORTISONE SOD SUCCINATE 100 MG VIAL IV SCH ×4 (01:23→18:00)
[2017-10-09] MEDS ORDERED: SODIUM BICARBONATE 8.4% SYRING 150 ML ONE (03:16)
[2017-10-09] MEDS ORDERED: DEXTROSE 5% 1,000 ML IV ONE (03:17)
[2017-10-09] MEDS: ALBUTEROL/IPRATROPIUM 3 ML NEB NEB SCH ×5 (03:30→19:30)
[2017-10-09] MEDS: SODIUM BICARBONATE 8.4% 150 ML in DEXTROSE 5% 1,000 ML IV SCH ×3 (04:00→16:45)
[2017-10-09] MEDS: NOREPINEPHRINE BITARTRATE/ NS 250 ML IV SCH ×4 (04:35→22:42)
[2017-10-09] MEDS: SODIUM CHLORIDE 0.9% 1000ML 1,000 ML IV SCH ×2 (05:19→13:28)
[2017-10-09 06:09] LABS: BASOPHILS # (AUTO) 0.1 (0.0-0.1); BASOPHILS % 0.4 % (0.0-1.0); HEMOGLOBIN 7.7 g/dL (14.0-18.0); LYMPHOCYTES # (AUTO) 0.6 (1.0-3.2); LYMPHOCYTES % 4.7 % (18.0-39.1); MEAN CORPUSCULAR HEMOGLOBIN 36.5 pg (28-32); MEAN CORPUSCULAR HGB CONC 32.1 g/dL (31-35); MEAN CORPUSCULAR VOLUME 113.7 fL (81-99); MONOCYTES # (AUTO) 0.3 (0.2-0.8); MONOCYTES % 2.5 % (4.4-11.3); NEUTROPHILS # (AUTO) 12.4 (2.1-6.9); NEUTROPHILS % 90.3 % (38.7-80.0); PLATELET COUNT 293 x10e3/uL (140-360); RED BLOOD COUNT 2.11 x10e6/uL (4.3-5.7); RED CELL DISTRIBUTION WIDTH 19.1 % (11.7-14.4)
[2017-10-09 06:21] LABS: INR 4.04; PROTHROMBIN TIME 36.9 seconds (11.9-14.5)
[2017-10-09 06:22] LABS: PARTIAL THROMBOPLASTIN TIME 60.5 seconds (23.8-35.5)
[2017-10-09] MEDS: PIPERACILLIN/TAZO 2.25 GM 50 ML IV SCH ×3 (06:26→21:58)
--- NOTE | 2017-10-09 06:34 | Diagnostic Imaging Report ---
ABDOMEN-1VIEW (KUB) Clinical history: Small bowel obstruction Technique: AP view abdomen Comparison: 06/23/2017 Findings: Single portable AP view. IVC filter unchanged to the right of L3-4. Clips overlie the pelvis. No dilated gas-filled loops of bowel; generalized paucity of small bowel gas limits evaluation for obstruction. Hemidiaphragms are partially excluded. Impression: Paucity of small bowel gas without definite evidence of obstruction on single portable view. Signed by: Dr Karon Jovel MD on 10/09/2017 6:31 AM
[2017-10-09 06:35] LABS: ALBUMIN 2.1 g/dL (3.5-5.0); ALBUMIN/GLOBULIN RATIO 0.8 (0.8-2.0); ANION GAP 12.3 mmol/L (8-16); CREATININE, SERUM 1.99 mg/dL (0.72-1.25); POTASSIUM 4.3 mmol/L (3.5-5.1)
[2017-10-09] MEDS ORDERED: SODIUM CHLORIDE 0.9% 250ML 250 ML IV ONE (06:45)
[2017-10-09 06:54] LABS: CALCIUM 6.1 mg/dL (8.4-10.2)
[2017-10-09 08:00] LABS: ABG HCO3 23 mmol/L (23-28); ABG PCO2 40 mmHg (41-51); ABG PH 7.37 (7.31-7.41); ABG PO2 144 mmHg (80-105)
--- NOTE | 2017-10-09 09:00 | Diagnostic Imaging Report ---
CHEST SINGLE (PORTABLE), 10/09/2017 5:00 AM Technique: CHEST SINGLE (PORTABLE) Comparison: 07/02/2017 Clinical history: Aspiration pneumonia Findings: See Impression Impression: 1. Lines/Tubes: NG tube extends subdiaphragmatically. Right central venous catheter tip overlies the expected right brachiocephalic. ET tube about 2 cm above the tonia, which is poorly visualized. 2. Persistent bibasilar opacities which may reflect recurrent aspiration/pneumonia in the setting of emphysema. Attention on follow-up to document resolution. Signed by: Dr Karon Jovel MD on 10/09/2017 6:28 AM
[2017-10-09 09:32] LABS: BAND NEUTROPHILS % (MANUAL) 45 %; LYMPHOCYTES % (MANUAL) 5 % (19-48); METAMYELOCYTES % (MANUAL) 16 % (0-0); MONOCYTES % (MANUAL) 13 % (3.4-9.0); MYELOCYTES % (MANUAL) 1 % (0-0); NEUTROPHILS % (MANUAL) 19 % (40-74)
[2017-10-09 09:36] LABS: PLATELET ESTIMATE ADEQUATE; PLATELET MORPHOLOGY COMMENT NORMAL; POLYCHROMASIA FEW; RBC MORPHOLOGY COMMENT ABNORMAL
[2017-10-09 09:37] LABS: ANISOCYTOSIS MARKED; POIKILOCYTOSIS MODERATE
[2017-10-09 09:40] LABS: HELMET CELLS SLIGHT
[2017-10-09] MEDS: MIDAZOLAM HCL 25 MG in SODIUM CHLORIDE 0.9% 50ML 45 ML IV PRN ×3 (10:30→21:00)
--- NOTE | 2017-10-09 12:06 | Consultation ---
DATE OF CONSULTATION: October 09, 2017 CARDIOLOGY CONSULTATION Thank you so much for asking me to see this nice man again in consultation. Mr. Patton is an elderly 82-year-old man known to me for many years, who presented to the emergency room on the with a complaint of shortness of breath and hypotension, required intubation. PAST MEDICAL HISTORY: Significant for repeated hospitalizations at [facility], most recently in June and July when he had pneumonia with sepsis. He had renal insufficiency at that time. He was last discharged from the hospital on August 20, 2017. Past medical history is also significant for multiple previous hospitalizations for small-bowel obstruction, never requiring surgery. He actually had end-stage renal failure requiring dialysis in September 2015, but his renal function improved, and he was able to discontinue dialysis. He has had both intermittent atrial fibrillation and deep venous thrombosis. He had DVT with pulmonary embolus in 2008 after bladder cancer and has been anticoagulated since that time. He had cystectomy, prostatectomy and ureterostomy in 2008. He had partial small colon resection possibly for Crohn's disease at age 15. HOME MEDICATIONS 1. Amiodarone 200 mg 2 tablets daily. 2. Amlodipine 5 mg daily. 3. Warfarin 5 mg and 2.5 mg tablets alternating. Cardiac catheterization performed in 2002 showed mild coronary artery disease. PHYSICAL EXAMINATION VITALS: Blood pressure 118/77, pulse 75 and regular. GENERAL: Exam at this time shows an elderly white man who is sedated on ventilator with Levophed, epinephrine and vasopressin drips. HEENT: Examination is relatively unremarkable except for pallor. THORAX: There is a right subclavian catheter. Heart sounds S1, S2 are equal, no significant murmur. Lungs have distant breath sounds. ABDOMEN: Quiet. No bowel sounds present to my exam. EXTREMITIES: No cyanosis, clubbing or edema. LABS: Pertinent laboratory studies today show an INR of 4.0 after he was given fresh frozen plasma yesterday. His presenting hemoglobin was 9.0, but declined to 7.7 before receiving blood this morning. His creatinine today is 1.99 and glucose 129. Cultures are still pending at this time. His troponins are normal. Albumin is 2.5 and 2.1 with lowest normal being 3.5. Chest x-ray shows basilar infiltrates. ASSESSMENT 1. Likely pneumonia. 2. Possible small-bowel obstruction, recurrent. 3. Renal insufficiency. 4. Over-anticoagulation with warfarin. 5. Chronic obstructive pulmonary disease. 6. History of atrial fibrillation. 7. History of deep venous thrombosis and pulmonary embolus. PLAN: Agree with current pressor support and ventilator management. Recommend another jumbo of fresh frozen plasma. Prognosis is poor. His code status is no defibrillations, no CPR. Thank you for asking me to see him in consultation. Job#: [id number]
[2017-10-09] MEDS: PHENYLEPHRINE 10MG/ML VIAL 40 MG in DEXTROSE 5% 250ML 246 ML IV PRN (13:00)
[2017-10-09] MEDS ORDERED: SODIUM CHLORIDE 0.9% 250ML 250 ML ONE (14:44)
--- NOTE | 2017-10-09 15:04 | Consultation ---
DATE OF CONSULTATION: October 09, 2017 INFECTIOUS DISEASE CONSULTATION REASON FOR CONSULTATION: Sepsis. HISTORY OF PRESENT ILLNESS: This is an 82-year-old white male who is currently in the intensive care unit. He comes in from the emergency room. The patient's [id number] provided the information to Dr. Hou. He is an 82-year-old white gentleman who is known to me from before. He was brought by ambulance because he was not doing well. He was found with a small-bowel obstruction. There was concern about aspiration pneumonia. He is currently intubated and lethargy and the history was taken mainly from the chart. No family at the bedside. This is a patient who has history of COPD, atrial fibrillation, emphysema, debility, chronic kidney disease. When he first came, he was quite septic and hypotensive. He was started on antibiotic. The patient, who has history of carcinoma of the bladder, carcinoma of the lung, was treated with stereotactic radiation, bladder surgery with resection, urostomy, radical bladder resection, intermittent atrial fibrillation and COPD, comes in with altered mental status. He was seen by Critical Care, Renal, Surgery and Cardiology. In the emergency room, he was evaluated. He also has history of cystectomy, ileal conduit, several admissions for small-bowel obstruction. CAT scan showed high-grade small-bowel obstruction but no evidence or definite finding of ischemic bowel. Patient is felt to be a very poor surgical candidate at any rate. LABORATORY DATA: Reviewed. His blood culture shows no growth in 24 hours. His white count on admission was 9.6, today is 13.7. Hemoglobin dropped from 9 to 7.7. Platelet of 293. Sodium 138, potassium 4.3, creatinine 1.99. He is currently on Solu-Cortef 50 q.6, Zosyn and vancomycin. Patient is currently in the intensive care unit. PHYSICAL EXAMINATION VITAL SIGNS: His vitals seem to be stable. Temperature 100.4. HEENT: He is normocephalic. NECK: Supple. CHEST: A few crackles. HEART: S1 and S2. No S3 or S4, no murmur. ABDOMEN: Soft. Bowel sounds hypoactive but present. EXTREMITIES: No edema. SKIN: No rash. IMPRESSION: I think the patient is septic, probably small-bowel obstruction early, probably ileus. It is not a complete obstruction. His abdomen is soft. He probably also has aspiration pneumonia. This is a patient who has underlying multiple complicated medical history as outlined above. Agree with Zosyn and vancomycin for the time-being. Will adjust for his kidney function. Continue his supportive care. Will follow. Job#: [id number] EV
[2017-10-09] MEDS: VASOPRESSIN 100 UNIT in DEXTROSE 5% 100ML 100 ML IV PRN (16:45)
[2017-10-09] MEDS: VANCOMYCIN 1GM/NS 250 ML 250 ML IV SCH (18:00)
[2017-10-10] VITALS (95 sets, daily range): BP systolic 84–137; BP diastolic 59–97
[2017-10-10] MEDS: ALBUTEROL/IPRATROPIUM 3 ML NEB NEB SCH ×7 (00:15→23:23)
[2017-10-10] MEDS: HYDROCORTISONE SOD SUCCINATE 100 MG VIAL IV SCH ×4 (01:00→18:21)
[2017-10-10] MEDS: MIDAZOLAM HCL 25 MG in SODIUM CHLORIDE 0.9% 50ML 45 ML IV PRN ×5 (02:30→21:55)
[2017-10-10 06:21] LABS: ALBUMIN 2.1 g/dL (3.5-5.0); ALBUMIN/GLOBULIN RATIO 0.8 (0.8-2.0); ANION GAP 12.9 mmol/L (8-16); CREATININE, SERUM 1.61 mg/dL (0.72-1.25)
[2017-10-10 06:25] LABS: POTASSIUM 2.9 mmol/L (3.5-5.1)
[2017-10-10 06:27] LABS: CALCIUM 6.1 mg/dL (8.4-10.2)
[2017-10-10] MEDS: PIPERACILLIN/TAZO 2.25 GM 50 ML IV SCH ×3 (06:28→22:55)
[2017-10-10] MEDS ORDERED: POTASSIUM CHLORIDE 20MEQ/100ML 300 ML IV ONE (07:00)
[2017-10-10] MEDS ORDERED: CALCIUM GLUCONATE 10% INJ 4.65 MEQ in SODIUM CHLORIDE 0.9% 50ML 50 ML IV ONE (07:00)
[2017-10-10] MEDS ORDERED: SODIUM CHLORIDE 0.9% 500ML 500 ML ONE ×2 (08:02→09:43)
[2017-10-10] MEDS: POTASSIUM CHLORIDE 20MEQ/100ML 100 ML IV SCH ×3 (08:02→12:00)
[2017-10-10] MEDS ORDERED: SODIUM CHLORIDE 0.9% 250ML 250 ML IV ONE (09:15)
[2017-10-10] MEDS ORDERED: FAMOTIDINE 20 MG/2 ML VIAL IV ONE ×2 (09:15→12:46)
[2017-10-10] MEDS: NOREPINEPHRINE BITARTRATE/ NS 250 ML IV SCH (11:00)
[2017-10-10 11:02] LABS: ABG PCO2 45 mmHg (41-51); ABG PH 7.42 (7.31-7.41); ABG PO2 80 mmHg (80-105)
[2017-10-10 11:03] LABS: ABG HCO3 29 mmol/L (23-28)
[2017-10-10] MEDS: SODIUM BICARBONATE 8.4% 150 ML in DEXTROSE 5% 1,000 ML IV SCH (11:15)
[2017-10-10] MEDS ORDERED: DEXAMETHASONE SOD PHOS 10 MG/1 ML VIAL IV ONE (12:45)
[2017-10-10] MEDS: DEXAMETHASONE SOD PHOS 10 MG/1 ML VIAL IV ONE ×2 (12:51→12:52)
[2017-10-10] MEDS ORDERED: CENTRAL TPN FORMULA 1 BAG IV SCH ×2 (13:00→18:00)
[2017-10-10 13:50] LABS: INR 1.67; PROTHROMBIN TIME 18.5 seconds (11.9-14.5)
[2017-10-10 13:54] LABS: ANION GAP 11.5 mmol/L (8-16); CREATININE, SERUM 1.56 mg/dL (0.72-1.25); POTASSIUM 3.5 mmol/L (3.5-5.1)
[2017-10-10 13:57] LABS: CALCIUM 6.7 mg/dL (8.4-10.2)
[2017-10-10] MEDS: FUROSEMIDE INJ 10 MG/ML 4 ML VIAL IV SCH ×2 (14:02→22:55)
[2017-10-10] MEDS: PROPOFOL IV EMULSION 10MG/ML 100 ML IV SCH ×2 (14:48→19:28)
[2017-10-10] MEDS ORDERED: KCL 20MEQ/.9 SOD CHL 1,000 ML IV SCH (16:15)
[2017-10-10] MEDS ORDERED: CALCIUM GLUCONATE 10% INJ 4.65 MEQ in SODIUM CHLORIDE 0.9% 50ML 100 ML IV ONE (16:45)
[2017-10-10] MEDS ORDERED: POTASSIUM CHLORIDE 20MEQ/100ML 100 ML IV ONE (18:00)
[2017-10-10] MEDS: VANCOMYCIN 1GM/NS 250 ML 250 ML IV SCH (18:06)
--- NOTE | 2017-10-10 18:13 | Diagnostic Imaging Report ---
PROCEDURE: A single AP view of the chest. COMPARISON: Chest x-ray 10/09/2017. INDICATIONS: LINE PLACEMENT FINDINGS: Lines/tubes: Endotracheal tube is unchanged. Right subclavian line tip is at the SVC and unchanged. Lungs: Lungs are moderately inflated. Bilateral airspace opacities predominant lung bases are again seen. Pleura: Small bilateral pleural effusions. Heart and mediastinum: The heart and the mediastinum are unremarkable. Atherosclerotic calcifications in the aorta are unchanged. Bones: No acute bony abnormality. IMPRESSION: 1. No change in right subclavian line and endotracheal tube. 2. No change in bilateral airspace opacities, likely pneumonia or aspiration. Dictated by: Cullen Sandoval M.D. on 10/10/2017 at 18:13 Electronically approved by: Cullen Sandoval M.D. on 10/10/2017 at 18:13
[2017-10-10] MEDS: VASOPRESSIN 100 UNIT in DEXTROSE 5% 100ML 100 ML IV PRN (18:32)
--- NOTE | 2017-10-10 19:10 | Progress Note ---
DATE: October 10, 2017 Mr. Yaw Patton is doing better today. I met with the family. He is still in ICU. He is comfortable. He is sedated. His vitals are stable. Blood cultures are negative so far. His white count is 13.7, hemoglobin 7.7 today, platelets 293,000, sodium 138, potassium 3.5, creatinine 1.56. PHYSICAL EXAMINATION GENERAL: He is intubated and sedated. VITAL SIGNS: Stable, currently afebrile. HEENT: Normocephalic, anicteric. NECK: Supple. CHEST: A few crackles bilaterally. HEART: S1 and S2. ABDOMEN: Soft. Bowel sounds present. EXTREMITIES: No edema. IMPRESSION: 1. Sepsis on admission, early small bowel obstruction, ileus. Seems to be getting better. 2. Aspiration pneumonia, also seems to be stable. 3. Electrolyte abnormality, hypocalcemia and hypokalemia all been corrected so far. Renal is following. 4. Chronic kidney disease. 5. Debilitated. 6. Renal insufficiency. 7. Chronic obstructive pulmonary disease. 8. Atrial fibrillation. 9. History of deep venous thrombosis. 10. Pulmonary embolism. PLAN: The plan is to continue with the current choice of antibiotic. He is on Zosyn and vancomycin. Will check CBC and will check chem panel. Will follow with you. Discussed with the son. Job#: [id number]
[2017-10-10] MEDS: CENTRAL TPN FORMULA 1 BAG IV SCH (20:45)
[2017-10-11] VITALS (91 sets, daily range): BP systolic 75–136; BP diastolic 49–85
[2017-10-11] MEDS: HYDROCORTISONE SOD SUCCINATE 100 MG VIAL IV SCH ×5 (00:15→23:50)
[2017-10-11] MEDS: MIDAZOLAM HCL 25 MG in SODIUM CHLORIDE 0.9% 50ML 45 ML IV PRN ×5 (01:45→23:00)
[2017-10-11] MEDS: PROPOFOL IV EMULSION 10MG/ML 100 ML IV SCH ×5 (02:17→23:50)
[2017-10-11] MEDS: PHENYLEPHRINE 10MG/ML VIAL 40 MG in DEXTROSE 5% 250ML 246 ML IV PRN ×3 (02:39→23:50)
[2017-10-11] MEDS: ALBUTEROL/IPRATROPIUM 3 ML NEB NEB SCH ×6 (03:12→23:15)
[2017-10-11] MEDS: PIPERACILLIN/TAZO 2.25 GM 50 ML IV SCH ×3 (05:20→23:50)
[2017-10-11] MEDS: FUROSEMIDE INJ 10 MG/ML 4 ML VIAL IV SCH ×3 (05:20→23:50)
[2017-10-11 06:16] LABS: BASOPHILS % 0.3 % (0.0-1.0); HEMATOCRIT 23.6 % (38.2-49.6); LYMPHOCYTES # (AUTO) 0.5 (1.0-3.2); LYMPHOCYTES % 3.3 % (18.0-39.1); MEAN CORPUSCULAR HEMOGLOBIN 34.6 pg (28-32); MEAN CORPUSCULAR HGB CONC 33.9 g/dL (31-35); MEAN CORPUSCULAR VOLUME 102.2 fL (81-99); MONOCYTES # (AUTO) 0.4 (0.2-0.8); MONOCYTES % 2.5 % (4.4-11.3); NEUTROPHILS # (AUTO) 14.6 (2.1-6.9); NEUTROPHILS % 93.3 % (38.7-80.0); PLATELET COUNT 197 x10e3/uL (140-360); RED BLOOD COUNT 2.31 x10e6/uL (4.3-5.7); RED CELL DISTRIBUTION WIDTH 23.6 % (11.7-14.4)
[2017-10-11 06:36] LABS: INR 1.52; PROTHROMBIN TIME 17.2 seconds (11.9-14.5)
[2017-10-11 06:47] LABS: ALBUMIN/GLOBULIN RATIO 0.7 (0.8-2.0); ANION GAP 11.8 mmol/L (8-16); CREATININE, SERUM 1.66 mg/dL (0.72-1.25); MAGNESIUM 1.5 MG/DL (1.3-2.1); PHOSPHORUS 4.3 MG/DL (2.3-4.7)
[2017-10-11 06:49] LABS: CALCIUM 6.5 mg/dL (8.4-10.2); POTASSIUM 2.8 mmol/L (3.5-5.1)
--- NOTE | 2017-10-11 07:00 | Diagnostic Imaging Report ---
CHEST SINGLE (PORTABLE), 10/11/2017 7:00 AM Technique: CHEST SINGLE (PORTABLE) Comparison: 10/09/2017 Clinical history: Pneumonia Findings: See Impression Impression: 1. Lines/Tubes: ET tube 5.4 cm above the tonia. Right central venous catheter overlies the SVC. NG tube no longer seen. 2. Persistent multifocal opacities in keeping with pneumonia in the setting of emphysema. Bilateral effusions. Signed by: Dr Karon Jovel MD on 10/11/2017 6:56 AM
--- NOTE | 2017-10-11 07:01 | Diagnostic Imaging Report ---
ABDOMEN-1VIEW (KUB) Clinical history: Small bowel obstruction Technique: AP view abdomen Comparison: 10/09/2017 Findings: IVC filter again noted. Paucity of small bowel gas. Inferior pelvis is excluded from view. Impression: Paucity of small bowel gas without definite evidence of obstruction on single portable view. Signed by: Dr Karon Jovel MD on 10/11/2017 6:57 AM
[2017-10-11 07:14] LABS: BAND NEUTROPHILS % (MANUAL) 7 %; LYMPHOCYTES % (MANUAL) 7 % (19-48); METAMYELOCYTES % (MANUAL) 1 % (0-0); MONOCYTES % (MANUAL) 1 % (3.4-9.0); NEUTROPHILS % (MANUAL) 84 % (40-74)
[2017-10-11 07:15] LABS: ANISOCYTOSIS SLIGHT; PLATELET ESTIMATE ADEQUATE; PLATELET MORPHOLOGY COMMENT NORMAL; RBC MORPHOLOGY COMMENT ABNORMAL
[2017-10-11] MEDS ORDERED: MAGNESIUM SULFATE 2GM/50ML 50 ML IV ONE (07:30)
[2017-10-11] MEDS ORDERED: POTASSIUM CHLORIDE 20MEQ/100ML 300 ML IV ONE (07:30)
[2017-10-11] MEDS: POTASSIUM CHLORIDE 20MEQ/100ML 100 ML IV SCH ×3 (08:16→11:57)
[2017-10-11] MEDS: VASOPRESSIN 100 UNIT in DEXTROSE 5% 100ML 100 ML IV PRN ×2 (09:00→10:46)
[2017-10-11] MEDS ORDERED: DEXTROSE 50% SYRINGE 50 ML IV PRN (13:15)
--- NOTE | 2017-10-11 15:16 | Diagnostic Imaging Report ---
PROCEDURE: A single AP view of the chest. COMPARISON: Patients [facility], DX, CHEST SINGLE (PORTABLE), 10/11/2017, 5:26. INDICATIONS: CENTRAL LINE PLACEMENT FINDINGS: Lines/tubes: A central line is noted with its tip to the right side of the trachea. Uncertain whether this is venous or arterial in location. ET tube tip is below the clavicles. Lungs: Slight improvement in the left-sided opacity. Opacity in the right lung base unchanged. Pleura: Small bilateral pleural effusions. Heart and mediastinum: The heart is enlarged. Bones: No acute bony abnormality. IMPRESSION: 1. Lines and tubes as described above. 2. Bibasilar opacities persist with improvement on the left side. David Darden D.O. Dictated by: David Darden D.O. on 10/11/2017 at 15:16 Electronically approved by: David Darden D.O. on 10/11/2017 at 15:16
[2017-10-11 16:11] LABS: ABG HCO3 32 mmol/L (23-28); ABG PCO2 55 mmHg (41-51); ABG PH 7.37 (7.31-7.41); ABG PO2 91 mmHg (80-105)
[2017-10-11 16:13] LABS: ABG HCO3 33 mmol/L (23-28); ABG PCO2 54 mmHg (41-51); ABG PO2 135 mmHg (80-105)
--- NOTE | 2017-10-11 16:18 | Diagnostic Imaging Report ---
PROCEDURE: A single AP view of the chest. COMPARISON: Patients [facility], DX, CHEST SINGLE (PORTABLE), 10/11/2017, 14:53. INDICATIONS: LINE PLACEMENT FINDINGS: Lines/tubes: A 0.035 inch 3 mm J wire was placed through the central lumen of the triple lumen catheter to help determine whether this catheter is venous or arterial in location. The wire stays to the right of the trachea and esophagus and extends to overlie the heart likely within the right ventricle. The course of the catheter or wire does not extend into the aortic arch. Lungs: Unchanged pulmonary opacities. Pleura: Unchanged pleural effusions. Heart and mediastinum: The heart and the mediastinum are unremarkable. Bones: No acute bony abnormality. IMPRESSION: 1. Course of the wire and catheter from the right central line overlies the SVC and extends to overlie likely the right heart and does not appear to be arterial. 2. Unchanged appearance of the pulmonary opacities. David Darden D.O. Dictated by: aDvid Darden D.O. on 10/11/2017 at 16:17 Electronically approved by: David Darden D.O. on 10/11/2017 at 16:17
[2017-10-11] MEDS ORDERED: INSULIN REGULAR, HUMAN 100 UNIT/1 ML 3ML VIAL SQ SCH (16:30)
[2017-10-11 16:32] LABS: ANION GAP 12.3 mmol/L (8-16); CREATININE, SERUM 1.68 mg/dL (0.72-1.25); PHOSPHORUS 3.6 MG/DL (2.3-4.7); POTASSIUM 3.3 mmol/L (3.5-5.1)
[2017-10-11 16:38] LABS: CALCIUM 7.2 mg/dL (8.4-10.2)
--- NOTE | 2017-10-11 17:28 | Diagnostic Imaging Report ---
PROCEDURE:X-RAY ABDOMEN - KUB COMPARISON:None. INDICATIONS:NG TUBE PLACEMENT FINDINGS: There is a non-obstructed bowel-gas pattern. NG tube extends below the diaphragm. IVC filter noted at the L3-L4 level. Marked lumbar spine scoliosis. There are no calcifications projected over the renal shadows, expected course of the ureters or bladder. There are no acute osseous abnormalities. CONCLUSION: NG tube as described above. David Darden D.O. Dictated by: David Darden D.O. on 10/11/2017 at 17:27 Electronically approved by: David Darden D.O. on 10/11/2017 at 17:27
[2017-10-11] MEDS: VANCOMYCIN 1GM/NS 250 ML 250 ML IV SCH (18:51)
[2017-10-11] MEDS: INSULIN REGULAR, HUMAN 100 UNIT/1 ML 3ML VIAL SQ SCH (19:18)
--- NOTE | 2017-10-11 22:15 | Diagnostic Imaging Report ---
CHEST XRAY LINE PLACEMENT, 10/11/2017 9:42 PM Technique: CHEST XRAY LINE PLACEMENT Comparison: 10/11/2017 Clinical history: PICC line placement Findings: See Impression Impression: 1. Lines/Tubes: Left PICC placement over the SVC. ET tube 8 cm above the tonia. Right central venous catheter overlies the SVC brachiocephalic junction. NG tube extends subdiaphragmatically. 2. Persistent multifocal opacities in keeping with pneumonia in the setting of emphysema. Layering bilateral effusions. Signed by: Dr Karon Jovel MD on 10/11/2017 10:11 PM
[2017-10-11] MEDS: CENTRAL TPN FORMULA 1 BAG IV SCH (23:00)
[2017-10-12] VITALS (90 sets, daily range): BP systolic 65–171; BP diastolic 43–94
[2017-10-12] MEDS: ALBUTEROL/IPRATROPIUM 3 ML NEB NEB SCH ×6 (02:50→23:15)
[2017-10-12] MEDS: MIDAZOLAM HCL 25 MG in SODIUM CHLORIDE 0.9% 50ML 45 ML IV PRN ×2 (04:10→12:00)
[2017-10-12] MEDS: PIPERACILLIN/TAZO 2.25 GM 50 ML IV SCH ×3 (06:05→22:58)
[2017-10-12] MEDS: HYDROCORTISONE SOD SUCCINATE 100 MG VIAL IV SCH ×4 (06:05→23:05)
[2017-10-12] MEDS: INSULIN REGULAR, HUMAN 100 UNIT/1 ML 3ML VIAL SQ SCH ×4 (06:05→18:41)
[2017-10-12] MEDS: FUROSEMIDE INJ 10 MG/ML 4 ML VIAL IV SCH ×3 (06:05→22:58)
--- NOTE | 2017-10-12 06:29 | Diagnostic Imaging Report ---
CHEST SINGLE (PORTABLE), 10/12/2017 7:00 AM Technique: CHEST SINGLE (PORTABLE) Comparison: 10/11/2017 Clinical history: Line placement Findings: See Impression Impression: 1. Lines/Tubes: ET tube 7.5 cm above the tonia. Right central venous catheter tip at the brachiocephalic SVC junction. Stable left PICC tip over the distal SVC. NG tube extends subdiaphragmatically. 2. Persistent multifocal opacities in keeping with pneumonia in the setting of emphysema. Probable layering bilateral effusions. Signed by: Dr Karon Jovel MD on 10/12/2017 6:25 AM
[2017-10-12 06:49] LABS: ANION GAP 10.8 mmol/L (8-16); CREATININE, SERUM 1.86 mg/dL (0.72-1.25); PHOSPHORUS 3.2 MG/DL (2.3-4.7)
[2017-10-12 06:53] LABS: CALCIUM 6.8 mg/dL (8.4-10.2); POTASSIUM 2.8 mmol/L (3.5-5.1)
[2017-10-12] MEDS ORDERED: POTASSIUM CHLORIDE 20MEQ/100ML 100 ML IV ONE (07:45)
[2017-10-12] MEDS: NOREPINEPHRINE BITARTRATE/ NS 250 ML IV SCH (13:30)
--- NOTE | 2017-10-12 14:35 | Progress Note ---
DATE: Family is at the bedside. The patient is sedated and comfortable. Apparently yesterday he had an episode of low blood pressure and also hypothermia. Right now, his vitals seem to be stable. REVIEW OF SYSTEMS: Nothing new. The patient remains intubated and sedated. PHYSICAL EXAMINATION GENERAL: Intubated and sedated. He is comfortable. VITALS: Stable, afebrile. HEENT: Normocephalic, anicteric. NECK: Supple. CHEST: A few rhonchi anteriorly. COR: S1 and S2. No murmur. ABDOMEN: Soft. Bowel sounds present. EXTREMITIES: No edema. IMPRESSION 1. Pneumonia with Serratia marcescens and Escherichia coli. 2. Urinary tract infection with enterococcus. Concerned his white count is getting worse. Will obtain blood cultures in the face of what happened yesterday. He is currently on piperacillin and tazobactam. 3. Sepsis on admission. 4. Small-bowel obstruction, better. 5. Ileus, better. 6. Respirations and pneumonia seem to be stable. 7. Chronic kidney disease. 8. Debilitated. 9. Atrial fibrillation. Will follow. Job#: [id number]
--- NOTE | 2017-10-12 15:10 | Progress Note ---
DATE: October 11, 2017 Mr. Patton remains on a vent, intubated, sedated. His vitals are stable. I met with his son again today and told him there are no new problems, still sedated. PHYSICAL EXAMINATION GENERAL: Intubated and sedated. VITAL SIGNS: Stable, afebrile. HEENT: Normocephalic, anicteric. NECK: Supple. CHEST: A few crackles, coarse. ABDOMEN: Soft. Bowel sounds present. EXTREMITIES: No edema. White count is still going up, it is 15.62, hemoglobin 8.0, has platelets of 197,000. Sodium 158, potassium 3.3, creatinine 1.68. His sputum, gram-negative rods. The patient on insulin, vancomycin, and Zosyn. IMPRESSIONS 1. Pneumonia. He is on a ventilator. Sputum shows gram-negative rods. 2. Hypokalemia, corrected. 3. Chronic kidney disease. 4. Respiratory failure. I am going to discontinue his vancomycin, continue his Zosyn. Recheck CBC, recheck chem panel. Discussed with the family. Will follow. Job#: [id number] CQ
[2017-10-12] MEDS: PROPOFOL IV EMULSION 10MG/ML 100 ML IV SCH (20:30)
[2017-10-12] MEDS: CENTRAL TPN FORMULA 1 BAG IV SCH (20:52)
[2017-10-13] VITALS (82 sets, daily range): BP systolic 79–132; BP diastolic 52–85
[2017-10-13] MEDS: SODIUM CHLORIDE 0.9% IRRIG 3,000 ML BAG IR SCH ×6 (00:25→20:30)
[2017-10-13] MEDS: INSULIN REGULAR, HUMAN 100 UNIT/1 ML 3ML VIAL SQ SCH ×4 (00:26→18:00)
[2017-10-13] MEDS: ALBUTEROL/IPRATROPIUM 3 ML NEB NEB SCH ×3 (03:08→10:19)
[2017-10-13] MEDS: VASOPRESSIN 100 UNIT in DEXTROSE 5% 100ML 100 ML IV PRN ×2 (03:44→20:30)
[2017-10-13] MEDS: PROPOFOL IV EMULSION 10MG/ML 100 ML IV SCH (03:50)
--- NOTE | 2017-10-13 05:51 | Diagnostic Imaging Report ---
CHEST SINGLE (PORTABLE), 10/13/2017 7:00 AM Technique: CHEST SINGLE (PORTABLE) Comparison: 10.12.17 Clinical history: Pneumonia Findings: See Impression Impression: 1. Lines/Tubes: ET tube 5 cm above the tonia. Removal of right CVC. Stable left PICC tip over the distal SVC. NG tube extends subdiaphragmatically. 2. Persistent multifocal opacities in keeping with pneumonia in the setting of emphysema. Layering bilateral effusions. Signed by: Dr Karon Jovel MD on 10/13/2017 5:46 AM
[2017-10-13] MEDS: PIPERACILLIN/TAZO 2.25 GM 50 ML IV SCH ×3 (06:20→21:20)
[2017-10-13] MEDS: HYDROCORTISONE SOD SUCCINATE 100 MG VIAL IV SCH ×2 (06:20→21:20)
[2017-10-13] MEDS: FUROSEMIDE INJ 10 MG/ML 4 ML VIAL IV SCH ×3 (06:20→21:20)
[2017-10-13 06:35] LABS: BASOPHILS % 0.2 % (0.0-1.0); HEMATOCRIT 25.1 % (38.2-49.6); HEMOGLOBIN 8.2 g/dL (14.0-18.0); MEAN CORPUSCULAR HEMOGLOBIN 33.2 pg (28-32); MEAN CORPUSCULAR HGB CONC 32.7 g/dL (31-35); MEAN CORPUSCULAR VOLUME 101.6 fL (81-99); MONOCYTES # (AUTO) 0.6 (0.2-0.8); MONOCYTES % 6.2 % (4.4-11.3); NEUTROPHILS % 77.9 % (38.7-80.0); PLATELET COUNT 119 x10e3/uL (140-360); RED BLOOD COUNT 2.47 x10e6/uL (4.3-5.7)
[2017-10-13 06:49] LABS: ANION GAP 10.9 mmol/L (8-16); CALCIUM 7.7 mg/dL (8.4-10.2); CREATININE, SERUM 1.88 mg/dL (0.72-1.25)
[2017-10-13 06:54] LABS: POTASSIUM 2.9 mmol/L (3.5-5.1)
[2017-10-13] MEDS: MIDAZOLAM HCL 25 MG in SODIUM CHLORIDE 0.9% 50ML 45 ML IV PRN ×6 (07:09→22:18)
[2017-10-13 07:11] LABS: MAGNESIUM 1.7 MG/DL (1.3-2.1); PHOSPHORUS 1.7 MG/DL (2.3-4.7)
[2017-10-13] MEDS ORDERED: POTASSIUM CHLORIDE 20MEQ/100ML 200 ML IV ONE (07:30)
[2017-10-13] MEDS ORDERED: MAGNESIUM SULFATE 2GM/50ML 50 ML IV ONE (07:30)
[2017-10-13] MEDS ORDERED: POTASSIUM PHOSPHATE 30 MM in SODIUM CHLORIDE 0.9% 250ML 250 ML IV ONE (08:00)
[2017-10-13 10:29] LABS: BAND NEUTROPHILS % (MANUAL) 1 %; LYMPHOCYTES % (MANUAL) 10 % (19-48); METAMYELOCYTES % (MANUAL) 1 % (0-0); MONOCYTES % (MANUAL) 6 % (3.4-9.0); MYELOCYTES % (MANUAL) 2 % (0-0); NEUTROPHILS % (MANUAL) 80 % (40-74)
[2017-10-13 13:00] LABS: MAGNESIUM 1.6 MG/DL (1.3-2.1); PHOSPHORUS 1.7 MG/DL (2.3-4.7); POTASSIUM 3.4 mmol/L (3.5-5.1)
[2017-10-13] MEDS: NOREPINEPHRINE BITARTRATE/ NS 250 ML IV SCH (13:30)
[2017-10-13] MEDS: IPRATROPIUM BROMIDE 0.02% 2.5 ML NEB NEB SCH ×2 (14:21→23:00)
[2017-10-13] MEDS ORDERED: HYDROMORPHONE 20MG/ NS 100ML IV PRN (14:30)
--- NOTE | 2017-10-13 17:14 | Progress Note ---
DATE: INFECTIOUS DISEASE PROGRESS NOTE SUBJECTIVE: Mr. Patton remains in ICU, intubated, sedated. His vitals are stable. He had a low fever earlier today of 100.8. PHYSICAL EXAMINATION HEENT: He is normocephalic, does not appear icteric. NECK: Supple. CHEST: A few crackles. HEART: S1 and S2. No S3 or S4, no murmur. ABDOMEN: Soft. Bowel sounds present. No tenderness. EXTREMITIES: No edema. SKIN: No rash. IMPRESSION 1. Pneumonia. The patient is presently on Zosyn. 2. Low fever. Check blood cultures. 3. Pneumonia with Serratia marcescens and Escherichia coli. 4. Urinary tract infection with enterococcus. 5. Anemia, status post transfusion. 6. Hypokalemia, being corrected. 7. Chronic kidney disease with creatinine 1.88. 8. Hypophosphatemia. Patient is on Zosyn. Will recheck in the morning. We may have to change the antibiotic if the fever persists or if he gets clinically worse. Job#: [id number] EV
[2017-10-13] MEDS: CENTRAL TPN FORMULA 1 BAG IV SCH (20:30)
[2017-10-13] MEDS: HEPARIN SOD (PORCINE) 5,000 UNIT/ML VIAL SC SCH (21:20)
[2017-10-13] MEDS: HYDROMORPHONE IV PRN (21:30)
[2017-10-13] MEDS: SODIUM CHLORIDE 0.9% IV PRN (21:30)
[2017-10-14] VITALS (89 sets, daily range): BP systolic 74–139; BP diastolic 46–87
[2017-10-14] MEDS: SODIUM CHLORIDE 0.9% IRRIG 3,000 ML BAG IR SCH (00:15)
[2017-10-14] MEDS: INSULIN REGULAR, HUMAN 100 UNIT/1 ML 3ML VIAL SQ SCH ×4 (00:35→18:00)
[2017-10-14] MEDS: MIDAZOLAM HCL 25 MG in SODIUM CHLORIDE 0.9% 50ML 45 ML IV PRN ×2 (01:26→05:00)
[2017-10-14] MEDS: FUROSEMIDE INJ 10 MG/ML 4 ML VIAL IV SCH ×3 (05:30→22:20)
[2017-10-14] MEDS: HYDROCORTISONE SOD SUCCINATE 100 MG VIAL IV SCH ×2 (05:30→22:20)
[2017-10-14] MEDS: PIPERACILLIN/TAZO 2.25 GM 50 ML IV SCH ×2 (05:30→14:27)
--- NOTE | 2017-10-14 06:03 | Diagnostic Imaging Report ---
CHEST SINGLE (PORTABLE), 10/14/2017 5:00 AM Technique: CHEST SINGLE (PORTABLE) Comparison: Previous day Clinical history: Intubated pneumonia Findings: See Impression Impression: 1. Lines/Tubes: ET tube 6 cm above the tonia. Removal of right CVC. Stable left PICC tip over the distal SVC. NG tube extends subdiaphragmatically. 2. Persistent multifocal opacities in keeping with pneumonia in the setting of emphysema. Layering bilateral effusions. Signed by: Dr Karon Jovel MD on 10/14/2017 6:00 AM
[2017-10-14 06:19] LABS: BASOPHILS % 0.1 % (0.0-1.0); HEMATOCRIT 23.5 % (38.2-49.6); HEMOGLOBIN 7.3 g/dL (14.0-18.0); LYMPHOCYTES % 11.9 % (18.0-39.1); MEAN CORPUSCULAR HEMOGLOBIN 33.2 pg (28-32); MEAN CORPUSCULAR HGB CONC 31.1 g/dL (31-35); MEAN CORPUSCULAR VOLUME 106.8 fL (81-99); MONOCYTES # (AUTO) 0.6 (0.2-0.8); MONOCYTES % 6.5 % (4.4-11.3); NEUTROPHILS # (AUTO) 6.4 (2.1-6.9); PLATELET COUNT 107 x10e3/uL (140-360); RED CELL DISTRIBUTION WIDTH 20.9 % (11.7-14.4)
[2017-10-14 06:41] LABS: ALBUMIN 2.3 g/dL (3.5-5.0); ALBUMIN/GLOBULIN RATIO 0.7 (0.8-2.0); ANION GAP 12.1 mmol/L (8-16); CALCIUM 7.6 mg/dL (8.4-10.2); CREATININE, SERUM 1.88 mg/dL (0.72-1.25); POTASSIUM 3.1 mmol/L (3.5-5.1)
[2017-10-14] MEDS: IPRATROPIUM BROMIDE 0.02% 2.5 ML NEB NEB SCH ×3 (07:00→22:29)
[2017-10-14] MEDS ORDERED: SODIUM CHLORIDE 0.9% 250ML 250 ML IV ONE (07:30)
[2017-10-14] MEDS ORDERED: POTASSIUM CHLORIDE 20MEQ/100ML 200 ML IV ONE (07:30)
[2017-10-14 10:39] LABS: ABG HCO3 34 mmol/L (23-28); ABG PCO2 56 mmHg (41-51); ABG PH 7.39 (7.31-7.41); ABG PO2 61 mmHg (80-105)
[2017-10-14] MEDS: HEPARIN SOD (PORCINE) 5,000 UNIT/ML VIAL SC SCH ×2 (11:20→22:20)
[2017-10-14] MEDS: NOREPINEPHRINE BITARTRATE/ NS 250 ML IV SCH (13:30)
[2017-10-14 13:48] LABS: LYMPHOCYTES % (MANUAL) 12 % (19-48); MONOCYTES % (MANUAL) 7 % (3.4-9.0); NEUTROPHILS % (MANUAL) 81 % (40-74); NUCLEATED RED BLOOD CELLS 1
[2017-10-14 13:49] LABS: ANISOCYTOSIS SLIGHT; PLATELET ESTIMATE SLIGHTLY DECREASED; PLATELET MORPHOLOGY COMMENT NORMAL; RBC MORPHOLOGY COMMENT NORMAL
[2017-10-14] MEDS: VASOPRESSIN 100 UNIT in DEXTROSE 5% 100ML 100 ML IV PRN (14:09)
[2017-10-14] MEDS ORDERED: DIGOXIN INJ 0.25 MG/ML 2 ML AMP IV SCH (14:45)
[2017-10-14] MEDS ORDERED: DIGOXIN INJ 0.25 MG/ML 2 ML AMP ONE ×2 (14:47→20:23)
[2017-10-14] MEDS ORDERED: SODIUM CHLORIDE 0.9% 250ML 250 ML ONE (18:10)
[2017-10-14] MEDS ORDERED: DIGOXIN INJ 0.25 MG/ML 2 ML AMP IV ONE (20:00)
[2017-10-14] MEDS ORDERED: METOPROLOL TARTRATE INJ 1 MG/ML VIAL IV ONE (20:15)
[2017-10-14] MEDS: NOREPINEPHRINE BITARTRATE/ NS 250 ML IV PRN (20:25)
[2017-10-14] MEDS ORDERED: ALBUMIN 5% 250ML IV ONE (20:30)
[2017-10-14] MEDS: CENTRAL TPN FORMULA 1 BAG IV SCH (20:50)
[2017-10-14] MEDS ORDERED: MEROPENEM 500MG 500 MG in SODIUM CHLORIDE 0.9% 50ML 50 ML IV SCH (21:00)
--- NOTE | 2017-10-14 21:27 | Progress Note ---
DATE: SUBJECTIVE: Mr. Patton remained in the ICU. Remains very ill. His vitals stable. Heart rate is 113, it was 135 earlier. Respirations 16. No fever. T-max 100.8 earlier. His blood cultures negative so far and 48-hour sputum, Serratia marcescens and E. coli. Urine enterococcus on October 10, 2017 and October 09, 2017. His white count 8.6, hemoglobin 7.3, his platelet is 107, which is going down. PHYSICAL EXAMINATION GENERAL: He is sedated. HEENT: Not appear icteric. NECK: Supple. CHEST: Few crackles. COR: S1, S2. No murmur. ABDOMEN: Soft. IMPRESSION 1. Respiratory failure. 2. Pneumonia. 3. Concern about fluid overload. 4. Early thrombocytopenia. The plan is that I am going to take him off Zosyn and put him on meropenem. 5. Anemia. 6. Chronic kidney disease. Prognosis remained poor. We will recheck labs and we will see how he is going to do over the next 24 hours. Job#: [id number] NATALY
[2017-10-14] MEDS ORDERED: ALBUMIN HUMAN 100 ML IV ONE (22:09)
[2017-10-14] MEDS: MEROPENEM 500 MG VIAL IV SCH (22:20)
[2017-10-15] VITALS (95 sets, daily range): BP systolic 61–154; BP diastolic 45–98
[2017-10-15] MEDS: FUROSEMIDE INJ 10 MG/ML 4 ML VIAL IV SCH (05:30)
[2017-10-15] MEDS: INSULIN REGULAR, HUMAN 100 UNIT/1 ML 3ML VIAL SQ SCH ×4 (06:00→18:00)
[2017-10-15 06:22] LABS: BASOPHILS # (AUTO) 0.1 (0.0-0.1); BASOPHILS % 0.9 % (0.0-1.0); HEMATOCRIT 30.4 % (38.2-49.6); HEMOGLOBIN 9.5 g/dL (14.0-18.0); LYMPHOCYTES # (AUTO) 1.2 (1.0-3.2); LYMPHOCYTES % 7.6 % (18.0-39.1); MEAN CORPUSCULAR HEMOGLOBIN 32.8 pg (28-32); MEAN CORPUSCULAR HGB CONC 31.3 g/dL (31-35); MEAN CORPUSCULAR VOLUME 104.8 fL (81-99); MONOCYTES # (AUTO) 0.8 (0.2-0.8); MONOCYTES % 4.8 % (4.4-11.3); NEUTROPHILS % 77.2 % (38.7-80.0); PLATELET COUNT 136 x10e3/uL (140-360); RED CELL DISTRIBUTION WIDTH 21.7 % (11.7-14.4)
--- NOTE | 2017-10-15 06:22 | Diagnostic Imaging Report ---
CHEST SINGLE (PORTABLE), 10/15/2017 5:00 AM Technique: CHEST SINGLE (PORTABLE) Comparison: Previous day Clinical history: Intubated, pneumonia Findings: See Impression Impression: 1. Lines/Tubes: Stable ET tube 5.5 cm above the tonia, left PICC, subdiaphragmatic NG tube. 2. Persistent multifocal opacities in keeping with pneumonia in the setting of emphysema. Layering bilateral effusions. Signed by: Dr Karon Jovel MD on 10/15/2017 6:19 AM
[2017-10-15 06:55] LABS: ALBUMIN 3.1 g/dL (3.5-5.0); ALBUMIN/GLOBULIN RATIO 0.9 (0.8-2.0); ANION GAP 13.3 mmol/L (8-16); CALCIUM 8.8 mg/dL (8.4-10.2); CREATININE, SERUM 1.86 mg/dL (0.72-1.25); MAGNESIUM 2.1 MG/DL (1.3-2.1); POTASSIUM 3.3 mmol/L (3.5-5.1)
[2017-10-15] MEDS: IPRATROPIUM BROMIDE 0.02% 2.5 ML NEB NEB SCH ×3 (06:55→23:10)
[2017-10-15 07:21] LABS: BAND NEUTROPHILS % (MANUAL) 2 %; LYMPHOCYTES % (MANUAL) 7 % (19-48); METAMYELOCYTES % (MANUAL) 2 % (0-0); MONOCYTES % (MANUAL) 7 % (3.4-9.0); MYELOCYTES % (MANUAL) 4 % (0-0); NEUTROPHILS % (MANUAL) 78 % (40-74); PLATELET ESTIMATE SLIGHTLY DECREASED; PLATELET MORPHOLOGY COMMENT NORMAL
[2017-10-15 07:22] LABS: ANISOCYTOSIS SLIGHT; RBC MORPHOLOGY COMMENT NORMAL
[2017-10-15] MEDS: MEROPENEM 500 MG VIAL IV SCH ×2 (09:07→21:09)
[2017-10-15] MEDS: HYDROCORTISONE SOD SUCCINATE 100 MG VIAL IV SCH ×2 (09:07→17:55)
[2017-10-15] MEDS: HEPARIN SOD (PORCINE) 5,000 UNIT/ML VIAL SC SCH ×2 (09:08→21:09)
[2017-10-15] MEDS ORDERED: POTASSIUM CHLORIDE 20MEQ/100ML 200 ML IV ONE (13:45)
[2017-10-15] MEDS: HYDROMORPHONE IV PRN (15:54)
[2017-10-15] MEDS: SODIUM CHLORIDE 0.9% IV PRN (15:54)
[2017-10-15] MEDS: NOREPINEPHRINE BITARTRATE/ NS 250 ML IV PRN ×3 (16:00→17:00)
--- NOTE | 2017-10-15 16:09 | Progress Note ---
DATE: Mr. Patton is doing better today. He is more alert. He remains on the ventilator. He remains very weak. He only tolerated apparently CPAP for a short period of time, and then he became fatigued. His vitals remain stable otherwise. His heart rate is 92, respirations 16, blood pressure 113/70. He has no fever. The last temperature had been October 13. PHYSICAL EXAMINATION VITALS: Stable, currently afebrile. GENERAL: He is currently alert. Follows simple commands. HEENT: Does not appear icteric. Normocephalic. NECK: Supple. CHEST: A few crackles bilaterally. COR: S1, S2. No murmur. ABDOMEN: Soft. Bowel sounds present. No tenderness. EXTREMITIES: No edema. LABS: White count 15.5, hemoglobin 9.5, hematocrit 30. Platelets 136. Sodium 143, potassium 3.3, creatinine 1.86. Chest x-ray which was ordered showed persistent multifocal opacities consistent with pneumonia. Venous study is still pending. The patient is on meropenem. He is also on Solu-Cortef 25 p.o. b.i.d. IMPRESSION 1. Persistent lung opacities. The patient has been on antibiotic since admission, but x-ray still resistant, probably persistent, recurrent and aspiration. 2. Leukocytosis from steroid. 3. Anemia of chronic disease. 4. Chronic kidney disease. 5. Debilitated. Continue with meropenem. If he spikes a fever, will get blood cultures. He is still on TPN. He is treated for fungal infection. Continue PT and OT. He probably would do best by going to an LTAC. Job#: [id number]
--- NOTE | 2017-10-15 21:28 | Consultation ---
DATE OF CONSULTATION: October 15, 2017 This is an 82-year-old, very nice gentleman who apparently was admitted to the hospital initially because of small bowel obstruction. The patient also intubated because of pneumonia. He was found to have anemia with a hemoccult positive stool. He is currently still intubated and receiving tube feeding at 30 mL an hour. There are no signs of active bleeding at this point. His medical problems are significant for chronic lung disease, history of small bowel obstructions, sepsis. The patient also has history of lung cancer, history of bladder cancer, history of COPD. ALLERGIES: NONE. SOCIAL HISTORY: Apparently no alcohol use. FAMILY HISTORY: Noncontributory. CURRENT MEDICATIONS: Solu-Cortef, heparin, meropenem, Humulin. REVIEW OF SYSTEMS: Unobtainable as the patient is intubated. PHYSICAL EXAMINATION GENERAL: He is intubated, awake. Appears to not be in acute distress. VITAL SIGNS: Afebrile. HEENT: Normocephalic, atraumatic. ET tube is in place. HEART: Sounds regular. LUNGS: Clear. ABDOMEN: Soft. There is no distention at this point. Nontender. EXTREMITIES: No clubbing. LABORATORY DATA: Significant for WBC is 15, hemoglobin 9.5, hematocrit 30.4. Platelet count is 136,000. Chemistry today, BUN of 41, creatinine 1.6. IMPRESSION 1. Anemia with hemoccult positive stool. There are no signs of bleeding at this point. 2. Small bowel obstruction, appears to be better. 3. Respiratory failure with pneumonia. 4. . RECOMMENDATIONS: Continue current care at this point. Observe the patient only. Will hold off any endoscopic evaluation unless the patient develops active signs of bleeding. Follow labs clinically. Job#: [id number] cc:MERCY GARDNER MD
[2017-10-16] VITALS (96 sets, daily range): BP systolic 53–136; BP diastolic 40–103
[2017-10-16] MEDS: IPRATROPIUM BROMIDE 0.02% 2.5 ML NEB NEB SCH ×3 (00:10→15:35)
[2017-10-16] MEDS: INSULIN REGULAR, HUMAN 100 UNIT/1 ML 3ML VIAL SQ SCH ×4 (06:00→18:00)
[2017-10-16 06:32] LABS: BASOPHILS # (AUTO) 0.1 (0.0-0.1); BASOPHILS % 0.7 % (0.0-1.0); EOSINOPHILS % 0.2 % (0.0-6.0); HEMOGLOBIN 10.4 g/dL (14.0-18.0); LYMPHOCYTES # (AUTO) 2.4 (1.0-3.2); LYMPHOCYTES % 16.4 % (18.0-39.1); MEAN CORPUSCULAR HEMOGLOBIN 32.4 pg (28-32); MEAN CORPUSCULAR HGB CONC 31.5 g/dL (31-35); MEAN CORPUSCULAR VOLUME 102.8 fL (81-99); MONOCYTES # (AUTO) 0.7 (0.2-0.8); MONOCYTES % 4.9 % (4.4-11.3); NEUTROPHILS # (AUTO) 10.2 (2.1-6.9); NEUTROPHILS % 70.2 % (38.7-80.0); PLATELET COUNT 169 x10e3/uL (140-360); RED BLOOD COUNT 3.21 x10e6/uL (4.3-5.7); RED CELL DISTRIBUTION WIDTH 21.2 % (11.7-14.4)
[2017-10-16 06:44] LABS: INR 1.1; PROTHROMBIN TIME 13.4 seconds (11.9-14.5)
[2017-10-16 06:45] LABS: PARTIAL THROMBOPLASTIN TIME 31.3 seconds (23.8-35.5)
[2017-10-16 06:56] LABS: ALBUMIN 2.8 g/dL (3.5-5.0); ALBUMIN/GLOBULIN RATIO 0.8 (0.8-2.0); ANION GAP 12.4 mmol/L (8-16); CREATININE, SERUM 2.26 mg/dL (0.72-1.25); POTASSIUM 3.4 mmol/L (3.5-5.1)
[2017-10-16 07:11] LABS: ANISOCYTOSIS SLIGHT; BAND NEUTROPHILS % (MANUAL) 2 %; MONOCYTES % (MANUAL) 2 % (3.4-9.0); NEUTROPHILS % (MANUAL) 67 % (40-74); PLATELET ESTIMATE ADEQUATE; PLATELET MORPHOLOGY COMMENT NORMAL; RBC MORPHOLOGY COMMENT NORMAL
[2017-10-16 07:14] LABS: LYMPHOCYTES % (MANUAL) 25 % (19-48); MYELOCYTES % (MANUAL) 4 % (0-0)
[2017-10-16] MEDS: NOREPINEPHRINE BITARTRATE/ NS 250 ML IV PRN (09:00)
[2017-10-16] MEDS ORDERED: SODIUM CHLORIDE 0.9% 1000ML 1,000 ML IV STA (09:29)
[2017-10-16] MEDS ORDERED: POTASSIUM CHLORIDE 20MEQ/100ML 200 ML IV ONE (09:45)
[2017-10-16] MEDS ORDERED: MIDAZOLAM HCL 2 MG/2 ML VIAL ONE (10:23)
[2017-10-16] MEDS ORDERED: MIDAZOLAM HCL 2 MG/2 ML VIAL IV STA (10:30)
[2017-10-16] MEDS ORDERED: DEXMEDETOMIDINE HCL 200 MCG in SODIUM CHLORIDE 0.9% 50ML 48 ML IV SCH (11:00)
[2017-10-16] MEDS: HYDROCORTISONE SOD SUCCINATE 100 MG VIAL IV SCH ×2 (11:10→17:49)
[2017-10-16] MEDS: MEROPENEM 500 MG VIAL IV SCH ×2 (11:10→20:45)
[2017-10-16] MEDS: HEPARIN SOD (PORCINE) 5,000 UNIT/ML VIAL SC SCH ×2 (11:11→20:45)
[2017-10-16] MEDS ORDERED: DIATRIZOATE MEGL/DIATRIZOA SOD 30 ML BTL PO ONE (11:28)
[2017-10-16] MEDS: SODIUM CHLORIDE 0.9% 1000ML 1,000 ML IV SCH ×2 (12:53→20:45)
[2017-10-16] MEDS ORDERED: POTASSIUM CHLORIDE 20MEQ/100ML 200 ML ONE (13:01)
--- NOTE | 2017-10-16 13:07 | Diagnostic Imaging Report ---
EXAM: CHEST SINGLE (PORTABLE), AP 1 view INDICATION: Intubated, pneumonia COMPARISON: AP view of the chest October 15, 2017 FINDINGS: LINES/TUBES: Stable position of endotracheal tube, left approach PICC and nasal/orogastric tube. LUNGS: Stable bibasilar airspace opacities. PLEURA: Probable small bilateral layering pleural effusions. HEART AND MEDIASTINUM: Stable appearance. BONES AND SOFT TISSUES: No acute findings. IMPRESSION: No interval change. Signed by: Dr. Alysa Grant M.D. on 10/16/2017 6:16 AM
--- NOTE | 2017-10-16 13:07 | Diagnostic Imaging Report ---
EXAM: ABDOMEN-1VIEW (KUB), supine INDICATION: Distended abdomen COMPARISON: KUB October 11, 2017 FINDINGS: LINES/TUBES: Inferior vena cava filter. BOWEL PATTERN: Diffuse air distention of loops of bowel, possibly both small and large. Air is seen in the expected location of the rectum. SOFT TISSUES: No abnormal calcifications. LUNG BASES: Not included BONES: No acute findings. IMPRESSION: Findings most likely represent ileus. Short-term follow-up KUB is recommended to exclude bowel obstruction. Signed by: Dr. Alysa Grant M.D. on 10/16/2017 6:18 AM
--- NOTE | 2017-10-16 14:42 | Diagnostic Imaging Report ---
PROCEDURE: CT ABDOMEN AND PELVIS WITHOUT CONTRAST TECHNIQUE: The abdomen and pelvis were scanned utilizing a multidetector helical scanner from the diaphragm to the lesser trochanter after the oral administration of dilute Gastrografin. No IV contrast was administered per physician's request. Coronal and sagittal multiplanar reformations were obtained. COMPARISON: [facility], CT, CT ABDOMEN/PELVIS W, 07/18/2016, 7:28. [facility], CT, CT ABDOMEN/PELVIS WO, 06/17/2017, 12:23. INDICATIONS: Small bowel obstruction, rule out volvulus FINDINGS: ABSENCE OF INTRAVENOUS CONTRAST DECREASES SENSITIVITY FOR DETECTION OF FOCAL LESIONS AND VASCULAR PATHOLOGY. LOWER THORAX: Stable severe bilateral centrilobular emphysematous changes. Interval worsening of bibasilar consolidations, likely reflecting atelectasis, or pneumonia. Slightly decreased interstitial edema, predominantly in the right middle lobe and lingula. Subpleural 8mm nodular density in the lateral right upper lobe (series 2 image 3), which was not imaged on prior exam. Atherosclerotic calcification of the coronary arteries and thoracic aorta. Slight worsening of mild pericardial effusion HEPATOBILIARY: Stable fluid density hepatic cysts in the right and left lobes. No other focal lesions. No biliary ductal dilation. Gallbladder is unremarkable. SPLEEN: No splenomegaly. PANCREAS: No focal masses or ductal dilatation. ADRENALS: No adrenal nodules. KIDNEYS/URETERS: No stones or solid mass lesions. Stable 1.9 cm fluid density cyst in the mid to inferior left kidney (series 2, image 40). Mild to moderate bilateral hydronephrosis and [id number] hydroureter. PELVIC ORGANS/BLADDER: Absent. 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 Prostate and seminal vesicles are not visualized. PERITONEUM / RETROPERITONEUM: Small amount of free pelvic fluid, which is slightly increased since the prior exam. LYMPH NODES: No lymphadenopathy. VESSELS: Marked atherosclerotic calcification of the abdominal aorta and iliac vessels. IVC filter in place. GI TRACT: Enteric tube in place with distal tip in the stomach fundus Small hiatal hernia. All of the oral contrast is in the stomach. Persistent dilation of the small bowel involving the jejunum and ileum, including before and after anastomotic sutures apparently located in the distal ileum (series 2, image 67 and coronal image 33). Progressive tapering to decompressed, and normal caliber small bowel in likely the distal/terminal ileum (series 2, image 58-60). The large bowel is normal in caliber, without dilation. Multiple rounded radiopaque densities are again noted in the distal ileum (series 2, image 77). No pneumatosis. No definite evidence of volvulus. BONES AND SOFT TISSUES: Stable moderate to marked degenerative changes in the lumbosacral spine with dextroscoliosis. 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 persistent dilation of small bowel involving jejunum and ileum with progressive tapering to normal caliber distal ileum/terminal ileum. This is suggestive of ileus. No obstructing mass. Anastomotic sutures in the right lower quadrant are stable, without evidence of stricture. No CT evidence of volvulus. No pneumatosis. 2. Improved opacities in the right middle lobe and lingula, likely reflecting improved edema or infection. There is worsening of bibasilar consolidations, likely reflecting atelectasis 3. Mild to moderate bilateral hydronephrosis and mild to moderate hydroureter. This may be secondary to extrinsic compression from dilated bowel. No ureteral stone is identified. 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 4. Slight worsening of mild pericardial effusion. Simba Schwab M.D. Dictated by: Simba Schwab M.D. on 10/16/2017 at 14:43 Electronically approved by: Simba Schwab M.D. on 10/16/2017 at 14:43
[2017-10-16] MEDS: DEXMEDETOMIDINE HCL 200 MCG in SODIUM CHLORIDE 0.9% 50ML 48 ML IV SCH ×2 (19:00→23:40)
[2017-10-16] MEDS: CENTRAL TPN FORMULA 1 BAG IV SCH (20:45)
[2017-10-17] VITALS (83 sets, daily range): BP systolic 87–151; BP diastolic 61–88
[2017-10-17] MEDS: INSULIN REGULAR, HUMAN 100 UNIT/1 ML 3ML VIAL SQ SCH ×4 (00:46→17:29)
[2017-10-17] MEDS: SODIUM CHLORIDE 0.9% 250ML IRRIG IR SCH ×6 (02:30→20:57)
[2017-10-17] MEDS: SODIUM CHLORIDE 0.9% 1000ML 1,000 ML IV SCH (05:30)
--- NOTE | 2017-10-17 05:58 | Diagnostic Imaging Report ---
EXAM: CHEST SINGLE (PORTABLE), AP 1 view INDICATION: Intubated COMPARISON: AP view of the chest October 16, 2017 FINDINGS: LINES/TUBES: Stable position of endotracheal tube, left approach PICC and partially visualized nasal/orogastric tube. LUNGS: Persistent bibasilar airspace opacities. PLEURA: No effusions or pneumothorax. HEART AND MEDIASTINUM: Stable appearance. BONES AND SOFT TISSUES: No acute findings. IMPRESSION: No interval change. Signed by: Dr. Alysa Grant M.D. on 10/17/2017 5:55 AM
--- NOTE | 2017-10-17 06:01 | Diagnostic Imaging Report ---
EXAM: ABDOMEN-1VIEW (KUB) INDICATION: distended abdomen, ileus COMPARISON: CT of the abdomen and pelvis and KUB October 16, 2017 FINDINGS: LINES/TUBES: Inferior vena cava filter. Nasal/orogastric tube tip in expected location of the body of the stomach. BOWEL PATTERN: Persistent dilated loops of predominantly small bowel, slightly decreased from prior exam. Air is seen throughout the colon. SOFT TISSUES: No abnormal calcifications. LUNG BASES: Not included BONES: No acute findings. IMPRESSION: Persistent ileus, with slightly decreased air distention. Signed by: Dr. lAysa Grant M.D. on 10/17/2017 5:57 AM
[2017-10-17 06:51] LABS: BASOPHILS # (AUTO) 0.1 (0.0-0.1); BASOPHILS % 0.4 % (0.0-1.0); EOSINOPHILS % 0.1 % (0.0-6.0); HEMATOCRIT 30.4 % (38.2-49.6); HEMOGLOBIN 9.4 g/dL (14.0-18.0); LYMPHOCYTES # (AUTO) 1.4 (1.0-3.2); LYMPHOCYTES % 9.7 % (18.0-39.1); MEAN CORPUSCULAR HEMOGLOBIN 32.4 pg (28-32); MEAN CORPUSCULAR HGB CONC 30.9 g/dL (31-35); MEAN CORPUSCULAR VOLUME 104.8 fL (81-99); MONOCYTES # (AUTO) 0.6 (0.2-0.8); NEUTROPHILS # (AUTO) 11.3 (2.1-6.9); NEUTROPHILS % 80.9 % (38.7-80.0); PLATELET COUNT 192 x10e3/uL (140-360); RED CELL DISTRIBUTION WIDTH 20.6 % (11.7-14.4)
[2017-10-17 07:08] LABS: ALBUMIN 2.4 g/dL (3.5-5.0); ALBUMIN/GLOBULIN RATIO 0.7 (0.8-2.0); ANION GAP 11.6 mmol/L (8-16); CALCIUM 8.6 mg/dL (8.4-10.2); CREATININE, SERUM 1.83 mg/dL (0.72-1.25); MAGNESIUM 1.9 MG/DL (1.3-2.1); POTASSIUM 3.6 mmol/L (3.5-5.1)
[2017-10-17] MEDS: IPRATROPIUM BROMIDE 0.02% 2.5 ML NEB NEB SCH ×3 (07:39→23:30)
[2017-10-17 07:56] LABS: BAND NEUTROPHILS % (MANUAL) 2 %; LYMPHOCYTES % (MANUAL) 6 % (19-48); METAMYELOCYTES % (MANUAL) 2 % (0-0); MONOCYTES % (MANUAL) 4 % (3.4-9.0); NEUTROPHILS % (MANUAL) 84 % (40-74)
[2017-10-17 07:57] LABS: ANISOCYTOSIS MODERATE; HYPOCHROMASIA SLIGHT; PLATELET ESTIMATE ADEQUATE; POIKILOCYTOSIS SLIGHT; STOMATOCYTES SLIGHT; TARGET CELLS FEW; TOXIC GRANULATION SLIGHT
[2017-10-17 07:58] LABS: PLATELET MORPHOLOGY COMMENT FEW LARGE
[2017-10-17 07:59] LABS: RBC MORPHOLOGY COMMENT ABNORMAL
[2017-10-17 08:39] LABS: ABG HCO3 36 mmol/L (23-28); ABG PCO2 46 mmHg (41-51); ABG PO2 96 mmHg (80-105)
[2017-10-17] MEDS: HYDROCORTISONE SOD SUCCINATE 100 MG VIAL IV SCH (09:29)
[2017-10-17] MEDS: MEROPENEM 500 MG VIAL IV SCH ×2 (09:29→21:05)
[2017-10-17] MEDS: HEPARIN SOD (PORCINE) 5,000 UNIT/ML VIAL SC SCH ×2 (09:30→20:52)
[2017-10-17] MEDS: DEXTROSE 5% 1,000 ML IV SCH ×2 (16:19→16:45)
[2017-10-17] MEDS: CENTRAL TPN FORMULA 1 BAG IV SCH ×2 (20:46→20:51)
[2017-10-17] MEDS: ACETAMINOPHEN 325 MG/10 ML UDC NG PRN (20:51)
[2017-10-18] VITALS (43 sets, daily range): BP systolic 108–152; BP diastolic 67–93
[2017-10-18] MEDS: DEXTROSE 5% 1,000 ML IV SCH ×3 (01:00→20:48)
[2017-10-18] MEDS: SODIUM CHLORIDE 0.9% 250ML IRRIG IR SCH ×6 (02:31→22:40)
[2017-10-18] MEDS: INSULIN REGULAR, HUMAN 100 UNIT/1 ML 3ML VIAL SQ SCH ×4 (05:17→18:00)
--- NOTE | 2017-10-18 05:25 | Diagnostic Imaging Report ---
EXAM: CHEST SINGLE (PORTABLE), AP 1 view INDICATION: Intubated/pneumonia COMPARISON: AP view of the chest October 17, 2017 FINDINGS: LINES/TUBES: Interval removal of the endotracheal tube. Stable position of left approach PICC and nasal/orogastric tube. LUNGS: Stable bibasilar airspace opacities. PLEURA: No effusions or pneumothorax. HEART AND MEDIASTINUM: Stable appearance. BONES AND SOFT TISSUES: No acute findings. IMPRESSION: No interval change. Signed by: Dr. Alysa Grant M.D. on 10/18/2017 5:22 AM
--- NOTE | 2017-10-18 05:27 | Diagnostic Imaging Report ---
EXAM: ABDOMEN-1VIEW (KUB), supine INDICATION: Ileus COMPARISON: KUB October 17, 2017 FINDINGS: LINES/TUBES: Stable inferior vena cava and nasal/orogastric tube. BOWEL PATTERN: Mildly dilated loops of small bowel, decreased from prior exam. Air is seen throughout the colon. SOFT TISSUES: No abnormal calcifications. LUNG BASES: Not included BONES: No acute findings. IMPRESSION: Improving ileus. Signed by: Dr. Alysa Grant M.D. on 10/18/2017 5:23 AM
[2017-10-18 05:34] LABS: BASOPHILS % 0.2 % (0.0-1.0); EOSINOPHILS # (AUTO) 0.1 (0.0-0.4); EOSINOPHILS % 0.5 % (0.0-6.0); HEMATOCRIT 32.1 % (38.2-49.6); LYMPHOCYTES # (AUTO) 1.2 (1.0-3.2); LYMPHOCYTES % 9.7 % (18.0-39.1); MEAN CORPUSCULAR HEMOGLOBIN 32.3 pg (28-32); MEAN CORPUSCULAR HGB CONC 31.2 g/dL (31-35); MEAN CORPUSCULAR VOLUME 103.5 fL (81-99); MONOCYTES # (AUTO) 0.5 (0.2-0.8); MONOCYTES % 4.2 % (4.4-11.3); NEUTROPHILS # (AUTO) 10.2 (2.1-6.9); NEUTROPHILS % 82.6 % (38.7-80.0); PLATELET COUNT 182 x10e3/uL (140-360); RED CELL DISTRIBUTION WIDTH 20.7 % (11.7-14.4)
[2017-10-18 05:58] LABS: ALBUMIN 2.6 g/dL (3.5-5.0); ALBUMIN/GLOBULIN RATIO 0.7 (0.8-2.0); ANION GAP 10.3 mmol/L (8-16); CALCIUM 9.1 mg/dL (8.4-10.2); CREATININE, SERUM 1.41 mg/dL (0.72-1.25); MAGNESIUM 2.5 MG/DL (1.3-2.1); POTASSIUM 3.3 mmol/L (3.5-5.1)
[2017-10-18] MEDS ORDERED: DEXTROSE 5% 1,000 ML IV ONE (06:30)
[2017-10-18] MEDS: IPRATROPIUM BROMIDE 0.02% 2.5 ML NEB NEB SCH ×2 (07:10→14:21)
[2017-10-18] MEDS ORDERED: POTASSIUM CHLORIDE 20MEQ/100ML 200 ML IV ONE (08:00)
[2017-10-18 08:33] LABS: LYMPHOCYTES % (MANUAL) 8 % (19-48); MONOCYTES % (MANUAL) 2 % (3.4-9.0); NEUTROPHILS % (MANUAL) 90 % (40-74)
[2017-10-18 08:34] LABS: PLATELET ESTIMATE ADEQUATE; PLATELET MORPHOLOGY COMMENT NORMAL
[2017-10-18 08:35] LABS: ANISOCYTOSIS MOD; POIKILOCYTOSIS SLIGHT; RBC MORPHOLOGY COMMENT ABNORMAL
[2017-10-18] MEDS: HYDROCORTISONE SOD SUCCINATE 100 MG VIAL IV SCH (09:34)
[2017-10-18] MEDS: MEROPENEM 500 MG VIAL IV SCH ×2 (09:34→21:05)
[2017-10-18] MEDS: HEPARIN SOD (PORCINE) 5,000 UNIT/ML VIAL SC SCH ×2 (09:49→21:05)
[2017-10-18] MEDS: CENTRAL TPN FORMULA 1 BAG IV SCH (20:30)
[2017-10-19] VITALS (43 sets, daily range): BP systolic 79–140; BP diastolic 48–81
[2017-10-19] MEDS: SODIUM CHLORIDE 0.9% 250ML IRRIG IR SCH ×2 (02:15→06:00)
[2017-10-19] MEDS: INSULIN REGULAR, HUMAN 100 UNIT/1 ML 3ML VIAL SQ SCH ×5 (06:00→23:30)
[2017-10-19 06:35] LABS: ALBUMIN 2.3 g/dL (3.5-5.0); ALBUMIN/GLOBULIN RATIO 0.7 (0.8-2.0); ANION GAP 10.5 mmol/L (8-16); CALCIUM 8.4 mg/dL (8.4-10.2); CREATININE, SERUM 1.21 mg/dL (0.72-1.25); MAGNESIUM 1.9 MG/DL (1.3-2.1); PHOSPHORUS 2.7 MG/DL (2.3-4.7); POTASSIUM 3.5 mmol/L (3.5-5.1)
[2017-10-19] MEDS: DEXTROSE 5% 1,000 ML IV SCH ×2 (07:00→17:00)
[2017-10-19] MEDS ORDERED: POTASSIUM CHLORIDE 20MEQ/100ML 100 ML IV ONE (07:30)
[2017-10-19] MEDS: IPRATROPIUM BROMIDE 0.02% 2.5 ML NEB NEB SCH ×3 (07:38→14:04)
[2017-10-19] MEDS: MEROPENEM 500 MG VIAL IV SCH ×2 (08:16→21:00)
[2017-10-19] MEDS: HYDROCORTISONE SOD SUCCINATE 100 MG VIAL IV SCH (08:16)
[2017-10-19] MEDS: HEPARIN SOD (PORCINE) 5,000 UNIT/ML VIAL SC SCH ×2 (08:21→22:00)
[2017-10-19] MEDS ORDERED: FUROSEMIDE INJ 10 MG/ML 4 ML VIAL IV NR (11:15)
[2017-10-19] MEDS: ACETAMINOPHEN 325 MG/10 ML UDC NG PRN (12:51)
[2017-10-19] MEDS: CENTRAL TPN FORMULA 1 BAG IV SCH (20:00)
[2017-10-20] VITALS (43 sets, daily range): BP systolic 82–127; BP diastolic 47–80
[2017-10-20] MEDS: INSULIN REGULAR, HUMAN 100 UNIT/1 ML 3ML VIAL SQ SCH ×4 (05:05→21:00)
[2017-10-20 05:07] LABS: BASOPHILS % 0.2 % (0.0-1.0); EOSINOPHILS # (AUTO) 0.1 (0.0-0.4); EOSINOPHILS % 1.1 % (0.0-6.0); HEMATOCRIT 30.2 % (38.2-49.6); HEMOGLOBIN 9.5 g/dL (14.0-18.0); LYMPHOCYTES # (AUTO) 2.1 (1.0-3.2); LYMPHOCYTES % 19.9 % (18.0-39.1); MEAN CORPUSCULAR HEMOGLOBIN 32.5 pg (28-32); MEAN CORPUSCULAR HGB CONC 31.5 g/dL (31-35); MEAN CORPUSCULAR VOLUME 103.4 fL (81-99); MONOCYTES # (AUTO) 0.7 (0.2-0.8); MONOCYTES % 6.4 % (4.4-11.3); NEUTROPHILS # (AUTO) 7.3 (2.1-6.9); NEUTROPHILS % 70.6 % (38.7-80.0); PLATELET COUNT 211 x10e3/uL (140-360); RED BLOOD COUNT 2.92 x10e6/uL (4.3-5.7); RED CELL DISTRIBUTION WIDTH 19.7 % (11.7-14.4)
[2017-10-20 05:35] LABS: ANION GAP 11.3 mmol/L (8-16); CALCIUM 8.2 mg/dL (8.4-10.2); CREATININE, SERUM 1.51 mg/dL (0.72-1.25); MAGNESIUM 1.8 MG/DL (1.3-2.1); PHOSPHORUS 3.3 MG/DL (2.3-4.7)
[2017-10-20 05:45] LABS: POTASSIUM 4.3 mmol/L (3.5-5.1)
[2017-10-20] MEDS: IPRATROPIUM BROMIDE 0.02% 2.5 ML NEB NEB SCH ×4 (07:05→22:30)
[2017-10-20] MEDS: MEROPENEM 500 MG VIAL IV SCH ×2 (09:33→23:00)
[2017-10-20] MEDS: HYDROCORTISONE SOD SUCCINATE 100 MG VIAL IV SCH (09:33)
[2017-10-20] MEDS: HEPARIN SOD (PORCINE) 5,000 UNIT/ML VIAL SC SCH (09:35)
[2017-10-20] MEDS: PREDNISONE 10 MG TAB PO SCH (16:58)
[2017-10-21] VITALS (27 sets, daily range): BP systolic 90–127; BP diastolic 52–86
[2017-10-21] MEDS: INSULIN REGULAR, HUMAN 100 UNIT/1 ML 3ML VIAL SQ SCH ×4 (06:35→20:16)
[2017-10-21] MEDS: IPRATROPIUM BROMIDE 0.02% 2.5 ML NEB NEB SCH ×3 (07:05→22:45)
[2017-10-21] MEDS: MEROPENEM 500 MG VIAL IV SCH ×2 (08:22→20:35)
[2017-10-21] MEDS: PREDNISONE 10 MG TAB PO SCH (08:22)
[2017-10-21] MEDS: HEPARIN SOD (PORCINE) 5,000 UNIT/ML VIAL SC SCH (20:19)
[2017-10-22] VITALS (20 sets, daily range): BP systolic 97–132; BP diastolic 56–78
[2017-10-22] MEDS: IPRATROPIUM BROMIDE 0.02% 2.5 ML NEB NEB SCH ×3 (07:18→22:10)
[2017-10-22] MEDS: INSULIN REGULAR, HUMAN 100 UNIT/1 ML 3ML VIAL SQ SCH ×4 (07:30→20:45)
[2017-10-22] MEDS: HEPARIN SOD (PORCINE) 5,000 UNIT/ML VIAL SC SCH ×2 (09:30→20:57)
[2017-10-22] MEDS: PREDNISONE 10 MG TAB PO SCH (09:30)
[2017-10-22] MEDS: WARFARIN SOD 2.5 MG TAB PO SCH (17:31)
[2017-10-23 06:50] LABS: BASOPHILS % 0.3 % (0.0-1.0); EOSINOPHILS # (AUTO) 0.1 (0.0-0.4); EOSINOPHILS % 1.3 % (0.0-6.0); HEMATOCRIT 28.5 % (38.2-49.6); HEMOGLOBIN 9.1 g/dL (14.0-18.0); LYMPHOCYTES # (AUTO) 2.5 (1.0-3.2); LYMPHOCYTES % 26.8 % (18.0-39.1); MEAN CORPUSCULAR HEMOGLOBIN 32.6 pg (28-32); MEAN CORPUSCULAR HGB CONC 31.9 g/dL (31-35); MEAN CORPUSCULAR VOLUME 102.2 fL (81-99); MONOCYTES # (AUTO) 0.8 (0.2-0.8); MONOCYTES % 9.2 % (4.4-11.3); NEUTROPHILS # (AUTO) 5.6 (2.1-6.9); NEUTROPHILS % 60.8 % (38.7-80.0); PLATELET COUNT 251 x10e3/uL (140-360); RED BLOOD COUNT 2.79 x10e6/uL (4.3-5.7); RED CELL DISTRIBUTION WIDTH 19.2 % (11.7-14.4)
[2017-10-23] MEDS: IPRATROPIUM BROMIDE 0.02% 2.5 ML NEB NEB SCH ×4 (07:00→21:06)
[2017-10-23 07:19] LABS: ANION GAP 9.3 mmol/L (8-16); CREATININE, SERUM 1.19 mg/dL (0.72-1.25); POTASSIUM 4.3 mmol/L (3.5-5.1)
[2017-10-23] MEDS: INSULIN REGULAR, HUMAN 100 UNIT/1 ML 3ML VIAL SQ SCH ×4 (07:30→20:14)
[2017-10-23 08:00] VITALS: BP 99/57
[2017-10-23] MEDS: PREDNISONE 10 MG TAB PO SCH (08:00)
[2017-10-23] MEDS: HEPARIN SOD (PORCINE) 5,000 UNIT/ML VIAL SC SCH ×2 (08:00→21:15)
[2017-10-23 12:00] VITALS: BP 99/57
[2017-10-23 16:00] VITALS: BP 110/63
[2017-10-23] MEDS: WARFARIN SOD 2.5 MG TAB PO SCH (16:41)
[2017-10-23 19:43] VITALS: BP 110/63
[2017-10-23 20:00] VITALS: BP 93/59
[2017-10-24 04:00] VITALS: BP 96/56
[2017-10-24] MEDS: IPRATROPIUM BROMIDE 0.02% 2.5 ML NEB NEB SCH ×2 (07:00→13:19)
[2017-10-24 07:17] VITALS: BP 107/68
[2017-10-24] MEDS: INSULIN REGULAR, HUMAN 100 UNIT/1 ML 3ML VIAL SQ SCH (07:30)
[2017-10-24] MEDS: PREDNISONE 10 MG TAB PO SCH (07:47)
[2017-10-24] MEDS: HEPARIN SOD (PORCINE) 5,000 UNIT/ML VIAL SC SCH (09:48)
[2017-10-24] MEDS ORDERED: ACETAMINOPHEN 325 MG TAB PO PRN (10:30)
[2017-10-24] MEDS ORDERED: COUMADIN2.5 MG PO (10:42)
[2017-10-24] MEDS ORDERED: COUMADIN5 MG PO (10:42)
[2017-10-24 11:20] VITALS: BP 103/57
[2017-10-24 11:25] VITALS: BP 107/68
[2017-10-24] MEDS ORDERED: SULFASALAZINE 500 MG TAB PO SCH (12:00)
--- NOTE | 2017-10-24 13:40 | Discharge Summary ---
DISCHARGE DIAGNOSES 1. Pneumonia, resolved. 2. Ileus, resolved. 3. Respiratory failure, resolved. 4. Chronic kidney disease, stable. 5. Chronic atrial fibrillation. 6. Frailty and weakness. Mr. Patton is an 82-year-old gentleman well known to me from the office and prior hospital admissions. He has an extensive past medical history significant for bladder and lung cancer, and recently he was diagnosed with COPD and emphysema, and was discharged home on home oxygen after a prior admission for sepsis. He presented to the emergency department complaining about abdominal distention, nausea, vomiting, and was found to be hypotensive. He was admitted to the intensive care unit. Initial workup revealed evidence of pneumonia with bilateral lung infiltrates. He was intubated and placed on mechanical ventilation, and he was started on broad-spectrum antibiotics and pressor support with 3 different pressor medications. Consultations were requested with pulmonary, ID, cardiology, and renal. He had a protracted stay in the intensive care unit. He was slowly able to wean from the ventilator, it took about a week. His renal function initially worsen, but quickly stabilized and improved. The abdominal distention was due to partial small-bowel obstruction, which was managed conservatively by the surgeon, Dr. Brito, with NG tube suctioning and n.p.o. While he was n.p.o., he received TPN. The patient slowly was able to wean off the TPN and began to tolerate clear liquids. Once he was more stable, physical therapy was started for mobilization and he was then transferred to the medical floor where he has been able to advance the diet to a GI soft. His warfarin has been restarted. He is being [facility] to a local [facility] facility. MERCY GARDNER MD Job#: [id number] DIOMEDES NASCIMENTO
[2017-10-24] MEDS ORDERED: ONDANSETRON HCL 4 MG ORAL DISINTEGRATING TAB PO SCH (14:00)
[2017-10-24] MEDS ORDERED: AMIODARONE HCL 200 MG TAB PO SCH (17:00)
[2017-10-24] MEDS ORDERED: WARFARIN SOD 2.5 MG TAB PO SCH ×2 (17:00)
[2017-10-24] MEDS ORDERED: WARFARIN SOD 5 MG TAB PO SCH (17:00)
[2017-10-25] MEDS ORDERED: TRAMADOL HCL 50 MG TAB PO SCH (09:00)
[2017-10-25] MEDS ORDERED: PANTOPRAZOLE SOD 40 MG TABEC PO SCH (09:00)
[2017-10-27] MEDS ORDERED: WARFARIN SOD 2.5 MG TAB PO SCH (17:00)
== END 2017-10-24 13:27 | DRG 870 ==
LOC: ER 08:44 → ERHOLD 13:44 → ICU 17:17 → MED/SURG3 10-22 14:55
PROVIDERS: ADMIT Internal Medicine; ATTEND Internal Medicine
PROC: 0BH17EZ Insertion of Endotracheal Airway into Trachea, Via Natural or Artificial Opening (ICD-10-PCS; principal; 2017-10-08)
PROC: 5A1955Z Respiratory Ventilation, Greater than 96 Consecutive Hours (ICD-10-PCS; 2017-10-08)
PROC: 02HV33Z Insertion of Infusion Device into Superior Vena Cava, Percutaneous Approach (ICD-10-PCS; 2017-10-08)
PROC: 3E043XZ Introduction of Vasopressor into Central Vein, Percutaneous Approach (ICD-10-PCS; 2017-10-08)
PROC: 30243K1 Transfusion of Nonautologous Frozen Plasma into Central Vein, Percutaneous Approach (ICD-10-PCS; 2017-10-08)
PROC: 30243N1 Transfusion of Nonautologous Red Blood Cells into Central Vein, Percutaneous Approach (ICD-10-PCS; 2017-10-08)
PROC: 02HV33Z Insertion of Infusion Device into Superior Vena Cava, Percutaneous Approach (ICD-10-PCS; 2017-10-11)
PROC: 3E0436Z Introduction of Nutritional Substance into Central Vein, Percutaneous Approach (ICD-10-PCS; 2017-10-14)
PROC: 5A09357 Assistance with Respiratory Ventilation, Less than 24 Consecutive Hours, Continuous Positive Airway Pressure (ICD-10-PCS; 2017-10-19)
DX: A41.9 Sepsis, unspecified organism (principal); J69.0 Pneumonitis due to inhalation of food and vomit; J96.21 Acute and chronic respiratory failure with hypoxia; N17.0 Acute kidney failure with tubular necrosis; R65.21 Severe sepsis with septic shock; J15.6 Pneumonia due to other Gram-negative bacteria; J15.5 Pneumonia due to Escherichia coli; E87.2 Acidosis; E87.4 Mixed disorder of acid-base balance; K56.7 Ileus, unspecified; J44.0 Chronic obstructive pulmonary disease with (acute) lower respiratory infection; J44.1 Chronic obstructive pulmonary disease with (acute) exacerbation; E46 Unspecified protein-calorie malnutrition; N39.0 Urinary tract infection, site not specified; K56.600 Partial intestinal obstruction, unspecified as to cause; D69.6 Thrombocytopenia, unspecified; E86.0 Dehydration; N18.3 Chronic kidney disease, stage 3 (moderate); D63.1 Anemia in chronic kidney disease; E11.22 Type 2 diabetes mellitus with diabetic chronic kidney disease; I48.2 Chronic atrial fibrillation; Z79.01 Long term (current) use of anticoagulants; R53.81 Other malaise; Z85.118 Personal history of other malignant neoplasm of bronchus and lung; Z85.51 Personal history of malignant neoplasm of bladder; Z92.3 Personal history of irradiation; Z99.81 Dependence on supplemental oxygen; Z93.6 Other artificial openings of urinary tract status; E87.5 Hyperkalemia; Z66 Do not resuscitate; Z86.718 Personal history of other venous thrombosis and embolism; Z86.711 Personal history of pulmonary embolism; E87.6 Hypokalemia; E83.51 Hypocalcemia; E83.39 Other disorders of phosphorus metabolism; I25.10 Atherosclerotic heart disease of native coronary artery without angina pectoris; Z87.891 Personal history of nicotine dependence; B95.2 Enterococcus as the cause of diseases classified elsewhere; R13.10 Dysphagia, unspecified
CPT/HCPCS: 31500; 36415; 36430; 36569; 36600; 71045; 74018; 74176; 74470; 80048; 80053; 80202; 82270; 82550; 82553; 82805; 82948; 83605; 83735; 83880; 84100; 84132; 84484; 85025; 85610; 85730; 86022; 86850; 86900; 86920; 87040; 87045; 87070; 87086; 87186; 87205; 87493; 93005; 93931; 93970; 93971; 94002; 94003; 94640; 94660; 96360; 96361; 96366; 96367; 96372; 96376; 97139; 99285; J0610; J1100; J1160; J1644; J1720; J1940; J2060; J2185; J2250; J2370; J2543; J3370; J3430; J3480; J7030; J7040; J7050; J7070; P9016; P9017